=== PATIENT | female | born 1950 | race Two or more races ===

== ENCOUNTER 2025-03-31 05:11 | Inpatient (IN) | payer OTHER ==
[~2025-03-31] VITALS: Ht 160 cm; Wt 64.6 kg
--- NOTE | 2025-03-31 05:34 | ED.PDOC ---
HPI Comments 74 year old female with a Hx of HTN, Hyperlipidemia, Arteritis, and Sciatica was BIBA for the c/c of a [facility] Transfer for an NSTEMI, Fever, Confusion, and RLQ ABD pain. Per EMS pt was Transferred from [facility], and note the pt had an ABD/Pelvic CT done at [facility] and was noted to be positive for appendicitis. Pt was also noted to have a Troponin of 400. Pt is noted to be a poor Historian at this time. No other associated symptoms, modifiers, recent injuries or sick contacts present at this time. Time Seen by MD: 05:27 Reviewed Notes: Nurses Notes, Spa Host Notes, Medications, Allergies Allergies: Coded Allergies: NO KNOWN ALLERGIES (Unverified , 03/31/25) Information Source: Patient, Emergency Med Personnel Mode of Arrival: EMS Severity: Moderate Timing: Hours Duration: Since onset, Hours Prehospital treatment: None Location: Chest (L) Radiation: Abdomen Quality: Sharp, Pressure Onset: At Rest Cardiac Risk Factors: Hyperlipidemia, HTN, None History of: None Modifying Factors: Exertion Associated Signs and Symptoms: Abdominal Pain Past Medical History PAST MEDICAL HISTORY: Arthritis, High Lipids, HTN Surgical History: Denies all surgeries PICKER/PULLER History: No Pertinent PICKER/PULLER History Family History Family History: Unknown Social History Smoker: Non-Smoker Alcohol: Denies ETOH Use Drugs: Denies Drug Use Lives In: Home Constitutional: denies: chills, diaphoresis, fatigue, fever, malaise, sweats, weakness, others EENTM: denies: blurred vision, double vision, ear bleeding, ear discharge, ear drainage, ear pain, ear ringing, eye pain, eye redness, hearing loss, mouth pain, mouth swelling, nasal discharge, nose bleeding, nose congestion, nose pain, photophobia, tearing, throat pain, throat swelling, voice changes, others Respiratory: denies: cough, hemoptysis, orthopnea, SOB at rest, shortness of breath, SOB with excertion, stridor, wheezing, others Cardiovascular: reports: chest pain; denies: dizzy spells, diaphoresis, Dyspnea on exertion, edema, irregular heart beat, left arm pain, lightheadedness, palpitations, PND, syncope, others Gastrointestinal: reports: abdominal pain; denies: abdomen distended, blood streaked bowels, constipated, diarrhea, dysphagia, difficulty swallowing, hematemesis, melena, nausea, poor appetite, poor fluid intake, rectal bleeding, rectal pain, vomiting, others Genitourinary: denies: abnormal vagina bleeding, burning, dyspareunia, dysuria, flank pain, frequency, hematuria, incontinence, pain, , vagina discharge, urgency, others Neurological: denies: dizziness, fainting, headache, left sided numbness, left sided weakness, numbness, paresthesia, pre-existing deficit, right sided numbness, right sided weakness, seizure, speech problems, tingling, tremors, weakness, others Musculoskeletal: denies: back pain, gout, joint pain, joint swelling, muscle pain, muscle stiffness, neck pain, others Integumetry: denies: bruises, change in color, change in hair/nails, dryness, laceration, lesions, lumps, rash, wounds, others Allergic/Immunocompromised: denies: Difficulty Healing, Frequent Infections, Hives, Itching, others Hematologic/Lymphatic: denies: anemia, blood clots, easy bleeding, easy bruising, swollen glands, others Endocrine: denies: excessive hunger, excessive sweating, excessive thirst, excessive urination, flushing, intolerance to cold, intolerance to heat, unexplained weight gain, unexplained weight loss, others Psychiatric: denies: anxiety, bipolar disorder, depression, hopeless, panic disorder, schizophrenia, sleepless, suicidal, others All Other Systems: Reviewed and Negative Physical Exam General Appearance: Moderate Distress, Normal, Other (Chronic ill appearing) HEENT: Normal ENT Inspection, Pharynx Normal, TMs Normal Neck: Full Range of Motion, Non-Tender, Normal, Normal Inspection Respiratory: Chest Non-Tender, Lungs Clear, No Accessory Muscle Use, No Respiratory Distress, Normal Breath Sounds Cardiovascular: No Edema, No JVD, No Murmur, No Gallop, Normal Peripheral Pulses, Regular Rate/Rhythm Breast Exam: Deferred Gastrointestinal: Non Tender, No Pulsatile Mass, Normal Bowel Sounds, Soft Genitalia: Deferred Pelvic: Deferred Rectal: Deferred Extremities: No calf tenderness, Normal capillary refill, Normal inspection, Normal range of motion, Non-tender, No pedal edema Musculoskeletal : Apperance: Normal Neurologic: Disoriented, No Motor Deficits, Normal Affect Cerebellar Function: Normal Reflexes: Normal Skin: Dry, Normal Color, Warm Lymphatic: No Adenopathy Was a procedure done? Was a procedure done?: No CP Differential Dx Differential Diagnosis: Angina, Anxiety / Panic Attack, Electrolyte Disorder, Pulmonary Embolus, PVC's, Sinus Tachycardia Differential Diagnosis: N/A Differential Diagnosis: Angina, Chest Wall Pain, Cholelithiasis, Esophageal reflux/spasm, Gastritis, Pericarditis, Pneumothorax, Pulmonary Embolus X-Ray, Labs, Meds, VS Vital Signs Date Time Temp Pulse Resp B/P (MAP) Pulse Ox O2 Delivery O2 Flow Rate FiO2 03/31/25 05:14 79 03/31/25 05:11 98.5 81 16 92/48 97 98.5 Current Medications Medications (Trade) Dose Ordered Sig/Matthew Route Start Time Stop Time Status Last Admin Sodium Chloride 1,000 ml @ 1,000 mls/hr Q1H ONCE IVB 03/31/25 05:30 03/31/25 06:29 03/31/25 05:52 Time of 1ST Reevaluation: 06:00 Reevaluation 1ST: Unchanged Patient Education/Counseling: Diagnosis, Treatment, Need For Follow Up Family Education/Counseling: No Family Present SEPSIS Sepsis Screen Physician Orders Electrocardigram (03/31/25 05:17) Troponin-I Hs (03/31/25 06:00) Complete Blood Count (03/31/25 05:23) Comprehensive Metabolic Panel (03/31/25 05:23) Lipase (03/31/25 05:23) Urinalysis (03/31/25 05:23) Sodium Chloride 0.9% (03/31/25 05:30) Ct Ab Pel With Iv Con Only (03/31/25 05:23) Heplock Iv (03/31/25 05:23) PTPTT (03/31/25 05:23) Blood Culture (03/31/25 05:23) Lactic Acid W/ Reflex Order (03/31/25 05:23) Troponin-I Hs (03/31/25 06:23) Troponin-I Hs (03/31/25 08:23) Vital Signs Date Time Temp Pulse Resp B/P (MAP) Pulse Ox O2 Delivery O2 Flow Rate FiO2 03/31/25 05:14 79 03/31/25 05:11 98.5 81 16 92/48 97 98.5 Medications Medications Dose Ordered Sig/Matthew Route Start Time Stop Time Status Last Admin Dose Admin Sodium Chloride 1,000 ml @ 1,000 mls/hr Q1H ONCE IVB 03/31/25 05:30 03/31/25 06:29 03/31/25 05:52 Departure 1 Departure Time of Disposition: 07:30 Impression: Primary Impression: Toxic encephalopathy Additional Impressions: Appendicitis Intermediate coronary syndrome Disposition: ADMITTED INPATIENT Admit to: Med Surg Condition: Guarded Discharged With: Self Comments Acute Appendicitis with Possible Microperforation and Elevated Troponin Chief Complaint: Fever, confusion, and right lower quadrant pain History of Present Illness: The patient is a 74-year-old female who was initially evaluated by paramedics today after developing a fever of 103F, confusion, and right lower quadrant abdominal pain. She was initially transported to [facility] where workup revealed findings consistent with appendicitis with possible microperforation on CT imaging. During her evaluation, troponin levels were checked and found to be significantly elevated at approximately 400 (units not specified). Due to lack of cardiac catheterization capabilities at [facility], the patient was transferred to our facility at [facility]. Prior to transfer, the patient received IV fluids, IV Zosyn, Tylenol, and Rocephin. The patient's presentation is most consistent with acute appendicitis with possible microperforation and secondary myocardial ischemia rather than a primary cardiac event requiring catheterization. Review of Systems: Constitutional: Positive for fever (103F). Neurological: Positive for confusion. Gastrointestinal: Positive for right lower quadrant abdominal pain. Cardiovascular: No chest pain, palpitations, or shortness of breath reported. All other systems: Unable to obtain due to patient's condition and limited information in transfer. Medications: Medications administered prior to arrival: - IV Zosyn - IV Rocephin - Tylenol - IV fluids Vital Signs: Temperature: 103F (reported prior to transfer) Other vital signs not documented in transfer information Physical Exam: Limited information available from transfer documentation. Neurological: Patient noted to have some confusion. Abdominal: Right lower quadrant pain noted. Lab Results: From [facility]: - Troponin: Elevated at approximately 400 (units not specified) - Other laboratory studies not documented in transfer information Imaging and Other Relevant Results: From [facility]: - CT Abdomen/Pelvis: Findings consistent with appendicitis with possible microp erforation Medical Decision Making: Summary Statement: 74-year-old female presenting with fever, confusion, and right lower quadrant pain found to have appendicitis with possible microperforation on CT and incidentally elevated troponin levels. Problem List: 1. Acute appendicitis with possible microperforation, 2. Elevated troponin (likely secondary to systemic inflammation), 3. Fever, 4. Acute confusion Differential Diagnosis: For abdominal pain: Acute appendicitis (most likely), diverticulitis, inflammatory bowel disease, mesenteric ischemia, ovarian pathology. For elevated troponin: Secondary myocardial ischemia due to systemic inflammation and fever, primary acute coronary syndrome, myocarditis, pulmonary embolism. ED Course: Patient received from [facility] with diagnosis of appendicitis and elevated troponin. After review of available information, assessment indicates primary issue is appendicitis with possible microperforation causing systemic inflammatory response with secondary cardiac ischemia. Patient does not require cardiac catheterization at this time but does need surgical consultation for appendicitis management. Assessment and Plan: 1. Acute Appendicitis with Possible Microperforation: - Continue IV antibiotics (Zosyn already initiated) - Urgent surgical consultation for definitive management - NPO status - IV fluid resuscitation - Pain management as needed 2. Elevated Troponin (likely secondary to systemic inflammation): - Cardiac monitoring - Serial troponin measurements - ECG - Cardiology consultation if troponin continues to rise or patient develops cardiac symptoms - No immediate indication for cardiac catheterization based on current presentation 3. Fever: - Continue antipyretics (Tylenol) - Monitor temperature 4. Acute Confusion: - Monitor mental status - Reorient as needed - Likely to improve with treatment of underlying infection Disposition: Admit to inpatient service for continued antibiotics, surgical management of appendicitis, and monitoring of cardiac status. Additional Notes: Patient transferred from [facility] for surgical evaluation and management Billing Information: ICD-10: K35.33 - Acute appendicitis with localized peritonitis ICD-10: R50.9 - Fever, unspecified ICD-10: R41.0 - Disorientation, unspecified ICD-10: I24.8 - Other forms of acute ischemic heart disease Critical Care Note Critical Care Time?: Yes (35 min-critical care time only) Critical care comment: Total critical care time: Approximately 36 minutes Due to a high probability of clinically significant, life threatening deterioration, the patient required my highest level of preparedness to intervene emergently and I personally spent this critical care time directly and personally managing the patient. This critical care time included obtaining a history; examining the patient; pulse oximetry; ordering and review of studies; arranging urgent treatment with development of a management plan; evaluation of patient's response to treatment; frequent reassessment; and, discussions with other providers. This critical care time was performed to assess and manage the high probability of imminent, life-threatening deterioration that could result in multi-organ failure. It was exclusive of separately billable procedures and treating other patients. Stability Stability form required: No Heart Score Heart Score: Heart Score Response (Comments) Value History Slightly Suspicious 0 EKG Repolarization Disturb 1 Age >65 2 Risk Factors 1 or 2 risk factors 1 Troponin >3 x's Normal limit 2 Total 6 I personally scribed for IMELDA RAMEY MD ([email or web address]) on 03/31/25 at 05:34. Electronically submitted by Alex Ball ([email or web address]). IMELDA RAMEY MD Mar 31, 2025 05:34
[2025-03-31 05:36] VITALS: PULSE 65; RESP 13; O2SAT 96
[2025-03-31] MEDS: SODIUM CHLORIDE 0.9% 1,000 ML IVB ONE (05:52)
[2025-03-31 06:33] LABS: Hematocrit 32.7 % (36.0-46.0); Hemoglobin 11.4 g/dL (12.2-16.2); Mean Corpuscular Hemoglobin 33.3 pg (28.0-32.0); Mean Corpuscular Volume 95.8 fL (80.0-100.0); Nucleated Red Blood Cells % 0.0 %
[2025-03-31 06:39] LABS: INR 1.16 (0.9-1.15); Partial Thromboplastin Time 29.2 SEC (24.5-34.5); Prothrombin Time 12.1 sec (9.3-11.8)
[2025-03-31 06:48] LABS: Albumin 3.5 g/dL (3.2-4.8); Anion Gap 11 (5-15); BUN/Creatinine Ratio 19.7 (10.0-20.0); Blood Urea Nitrogen 13 mg/dL (9-23); Carbon Dioxide 23 mmol/L (20-31); Lipase 40 U/L (12-53); Sodium 144 mmol/L (136-145)
[2025-03-31 06:49] LABS: Bilirubin, Total 0.5 mg/dL (0.2-1.0)
[2025-03-31 06:50] LABS: Alanine Aminotransferase < 9 U/L (7-40); Alkaline Phosphatase 44 U/L (46-116); Calcium 8.0 mg/dL (8.7-10.4); Chloride 110 mmol/L (98-107); Glucose 109 mg/dL (74-106); Potassium 2.9 mmol/L (3.5-5.1); Total Protein 5.7 g/dL (5.7-8.2)
[2025-03-31] MEDS: IOHEXOL 300 MG/ML 100ML BOTTLE IJ ONE (07:17)
[2025-03-31 08:00] VITALS: PULSE 65; RESP 13; RESP 18; O2SAT 95; O2SAT 96
--- NOTE | 2025-03-31 08:03 | DVH ---
Exam: CT CT AB PEL WO CON-NO ORAL OR IV History: RLQ PAIN Comparison Study: None Technique: Multidetector spiral CT of the abdomen and pelvis was performed from lung bases to pubic s ymphysis. Imaging was performed without intravenous contrast. Coronal and sagittal multiplanar reform ats were obtained from the axial data set by the technologist. Radiation Dose : 1. Abdomen/Pelvis: CTDIvol 13.33 mGy, DLP 596.02 mGy*cm. Findings: Evaluation of vasculature and solid organs is limited due to lack of intravenous contrast use. Lung Bases: Bibasilar airspace disease. Visualized portions of the heart and pericardium are unremark able. Liver: The liver is normal in size. No focal lesions. Diffusely hypoattenuating liver parenchyma con sistent with hepatic steatosis. Gallbladder and Biliary Tree: The gallbladder is unremarkable. No intrahepatic or extrahepatic biliar y ductal dilatation. Spleen: Unremarkable Pancreas: The pancreas is grossly unremarkable. Adrenal Glands: Unremarkable Kidneys: Kidneys are unremarkable without calculi or hydronephrosis. GI tract: The stomach is grossly normal in appearance. No evidence of small bowel wall thickening or abnormal dilatation to suggest bowel obstruction. Sigmoid diverticulosis without acute diverticulitis . Dilated fluid-filled appendix is noted measuring up to 16 mm in diameter with periappendicular fat stranding and Trace fluid, consistent with acute appendicitis. Peritoneum/mesentery/retroperitoneum. No evidence of free intraperitoneal air. Trace fluid surroundin g the inflamed appendix without collection. Lymph nodes: No evidence of suspicious lymphadenopathy. Abdominal Wall: Unremarkable. Vasculature: The visualized abdominal aorta is normal in size and caliber. Evaluation of abdominal a nd pelvic vessels is limited due to lack of intravenous contrast. Urinary Bladder: Grossly unremarkable for degree of distention. Pelvic Organs: Unremarkable Musculoskeletal: No aggressive focal bony lesions, acute fractures or dislocation. 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 IMPRESSION: 1. Acute appendicitis. No perforation or drainable fluid collection. 2. Colonic diverticulosis without acute diverticulitis.
[2025-03-31] MEDS: ACETAMINOPHEN IV 1000 MG/100ML (10MG/ML) IV PRN (08:35)
[2025-03-31 08:42] LABS: Urine Protein, UAD Negative (Negative)
[2025-03-31] MEDS ORDERED: NITROGLYCERIN 0.4 MG SL TAB SL PRN (10:45)
--- NOTE | 2025-03-31 10:51 | DVHHPRES ---
History of Present Illness Resident Creating Document: MIKEL TORRES RESIDENT History of Present Illness Patient is 74-year-old female with past medical history of hypertension, depression, peripheral neuropathy, insomnia brought to the hospital from [facility] for evaluation of altered mental status and severe abdominal pain. Patient was found to being altered around yesterday evening 2100, was seen by son, given patient was altered , patient was brought to the [facility]. During [facility] patient found to have hypokalemia, head CT scan ruled out acute intracranial abnormality, chest x-ray was unremarkable, CT scan abdomen found to have acute appendicitis, possible micro perforation can not be ruled out. Then patient was transferred to [facility] for further evaluation. At the time of evaluation, Patient complaining of right lower quadrant abdominal pain, 7/10, associated with chills, feeling nauseous, no recent vomiting, patient complaining of mild watery diarrhea two days ago, no diarrhea today, denied acute chest pain or shortness of breath. Patient is alert oriented time place and person, able to answer all the questions. Complaining of pain requiring pain medicines. Patient denying any other symptoms including chest pain, shortness of breath, motor weakness, sensory deficits, urinary frequency, dysuria, any other symptoms. Past medical history: Hypertension, depression, peripheral neuropathy, insomnia, osteoarthritis Past surgical history: Cholecystectomy, hysterectomy Personal history: None, lives with family, denying any smoking or recreational drug use before. Allergy: None Home medication: Electronic 70 mg p.o. daily, ibuprofen 800 mg tablet p.r.n. , gabapentin 600 mg p.o. frequency not mentioned, amitriptyline 10 mg p.o. daily, omeprazole 20 mg p.o. daily, lisinopril 10 mg p.o. daily, simvastatin 20 mg p.o. daily. Review of Systems Constitutional: No: Fever, Chills, Sweats, Weakness, Malaise, Other Eyes: No: Pain, Vision change, Conjunctivae inflammation, Eyelid inflammation, Other, Redness ENT: No: Ear pain, Ear discharge, Nose pain, Nose discharge, Nose congestion, Mouth pain, Mouth swelling, Throat pain, Throat swelling, Other Respiratory: No: Cough, Dry, Shortness of breath, SOB with excertion, Wheezing, Hemoptysis, Pleuritic Pain, Sputum, Wheezing, Other Cardiovascular: No: Chest Pain, Palpitations, Orthopnea, Paroxysmal Noc. Dyspnea, Edema, Lt Headedness, Other Gastrointestinal: Nausea Genitourinary: No Dysuria, No Frequency, No Incontinence, No Hematuria, No Retention, No Other Musculoskeletal: No: other, neck pain, shoulder pain, arm pain, back pain, hand pain, leg pain, foot pain Skin: No: Rash, Lesions, Jaundice, Bruising, Other Neurological: No: Weakness, Numbness, Incoordination, Change in speech, Confusion, Seizures, Other Allergies: Coded Allergies: NO KNOWN ALLERGIES (Unverified , 03/31/25) Medications Current Medications Medications Dose Ordered Sig/Matthew Route Start Time Stop Time Status Last Admin Dose Admin Nitroglycerin 0.4 mg Q5MINP PRN SL 03/31/25 10:45 UNV Morphine Sulfate 2 mg Q30M PRN IV 03/31/25 10:45 UNV Sodium Chloride 1,000 ml @ 100 mls/hr Q10H IV 03/31/25 10:45 UNV Piperacillin Sod/ Tazobactam Sod 100 ml @ 25 mls/hr Q8HR IV 03/31/25 14:00 UNV Pantoprazole Sodium 40 mg DAILY IV 04/01/25 10:00 UNV Potassium Chloride 100 ml @ 50 mls/hr Q2H IV 03/31/25 10:45 03/31/25 16:44 UNV Morphine Sulfate 1 mg Q3HP PRN IV 03/31/25 11:00 UNV Exam Vital Signs Vital Signs Date Time Temp Pulse Resp B/P (MAP) Pulse Ox O2 Delivery O2 Flow Rate FiO2 03/31/25 09:30 64 15 130/51 (77) 94 03/31/25 08:00 Room Air* 0 21 03/31/25 07:30 97.9 97.9 Exam General Appearance: Cooperative. Well developed. Well nourished. NAD Head Exam: Normal inspection Neck Exam: Normal inspection. Non-tender. Normal alignment Pulmonary/Respiratory: Chest non-tender. Clear bilateral breath sounds Cardiovascular/Chest: Regular rate and rhythm. No murmurs. No JVD. Peripheral Pulses: 2+ Radial (R). 2+ Radial (L). 2+ Pedal (R). 2+ Pedal (L) Abdominal Exam: Normal bowel sounds. Soft. Right lower quadrant tenderness, no rigidity, no guarding No hepatospenomegaly. No masses Ankle Exam: Negative ankle edema Lower extremities: Negative lower extremity edema Neuro/Mental Status: A&O x4. Coherent Thoughts/Psych: Normal thought pattern. Appropriate mood and affect. Good judgement and insight Appearance: In no acute distress Skin Exam: Normal inspection. Normal color. Warm. Dry Labs/Xrays Labs Test 03/31/25 08:26 03/31/25 07:05 03/31/25 05:50 Range/Units Urine Color Light-yellow Yellow Urine Clarity Clear Clear Urine pH 6.5 5.0-9.0 Urine Specific [place] 1.013 1.001-1.035 Urine Protein Negative Negative Urine Ketones Negative Negative Urine Blood 1+ H Negative /uL Urine Nitrite Negative Negative Urine Bilirubin Negative Negative Urine Urobilinogen Normal Negative mg/dL Urine Leukocyte Esterase Negative Negative /uL Urine RBC 6 0 - 4 /hpf Urine Microscopic WBC 1 0-5 /HPF Urine Squamous Epithelial Cells Few <5 /hpf Urine Bacteria None seen None Seen /hpf Urine Glucose Normal Normal mg/dL Troponin I High Sensitivity 421 *H </=34 ng/L White Blood Count 11.8 H 4.4-10.8 10^3/uL Red Blood Count 3.42 L 4.0-5.20 10^6/uL Hemoglobin 11.4 L 12.2-16.2 g/dL Hematocrit 32.7 L 36.0-46.0 % Mean Corpuscular Volume 95.8 80.0-100.0 fL Mean Corpuscular Hemoglobin 33.3 H 28.0-32.0 pg Mean Corpuscular Hemoglobin Concent 34.8 32.0-36.0 g/dL Red Cell Distribution Width 13.6 11.8-14.3 % Platelet Count 209 140-450 10^3/uL Mean Platelet Volume 7.8 6.9-10.8 fL Neutrophils (%) (Auto) 89.4 H 37.0-80.0 % Lymphocytes (%) (Auto) 5.5 L 10.0-50.0 % Monocytes (%) (Auto) 5.0 0.0-12.0 % Eosinophils (%) (Auto) 0.0 0.0-7.0 % Basophils (%) (Auto) 0.1 0.0-2.0 % Neutrophils # (Auto) 10.6 H 1.6-8.6 10 ^3/uL Lymphocytes # (Auto) 0.6 0.4-5.4 10 ^3/uL Monocytes # (Auto) 0.6 0-1.3 10 ^3/uL Eosinophils # (Auto) 0 0-0.8 10 ^3/uL Basophils # (Auto) 0 0-0.2 10 ^3/uL Nucleated Red Blood Cells 0.0 % Prothrombin Time 12.1 H 9.3-11.8 sec Prothrombin Time INR 1.16 H 0.9-1.15 Activated Partial Thromboplast Time 29.2 24.5-34.5 SEC Sodium Level 144 136-145 mmol/L Potassium Level 2.9 L 3.5-5.1 mmol/L Chloride Level 110 H 98-107 mmol/L Carbon Dioxide Level 23 20-31 mmol/L Anion Gap 11 5-15 Blood Urea Nitrogen 13 9-23 mg/dL Creatinine 0.66 0.550-1.02 mg/dL Glomerular Filtration Rate Calc 93 >90 mL/min BUN/Creatinine Ratio 19.7 10.0-20.0 Serum Glucose 109 H 74-106 mg/dL Lactic Acid Level 1.0 0.4-2.0 mmol/L Calcium Level 8.0 L 8.7-10.4 mg/dL Total Bilirubin 0.5 0.2-1.0 mg/dL Aspartate Amino Transferase (AST) 18 13-40 U/L Alanine Aminotransferase (ALT) < 9 7-40 U/L Alkaline Phosphatase 44 L 46-116 U/L Total Protein 5.7 5.7-8.2 g/dL Albumin 3.5 3.2-4.8 g/dL Lipase 40 12-53 U/L SEPSIS Sepsis Screen Date sepsis recognized/suspect: Mar 31, 2025 Time Sepsis recognized/suspect: 08 Recent Procedure: No On Antibiotic Therapy: No Respiratory Rate >20: No Heart Rate >90: No Temp<36 C (96.8 F) or >38.3 C: No SBP <90 or MAP <65 mmHG: No New Acute Mental Status Change: No Is the patient on CPAP, BIPAP,: No Physician Orders Electrocardigram (03/31/25 05:17) Heplock Iv (03/31/25 05:23) Blood Culture (03/31/25 05:23) Troponin-I Hs (03/31/25 08:23) Ct Ab Pel Wo Con-No Oral Or Iv (03/31/25 07:18) Admit (03/31/25 10:40) Nitroglycerin Sublingual (Ntrostat Subli (03/31/25 10:45) Morphine Sulfate Injection (03/31/25 10:45) Oxygen By Nasal Cannula (03/31/25 10:40) Notify Of Changes From Base (03/31/25 10:40) Information Systems Security Specialist For 24 Hours (03/31/25 10:40) Emergency Dysrhythmia Protocol (03/31/25 10:40) Rhythm Strips Once Every Shift (03/31/25 10:40) * Surgical Consult (03/31/25 ) Sodium Chloride 0.9% (03/31/25 10:45) Piperacillin-Tazob 3.375gm (Zosyn 3.375g (03/31/25 10:45) Piperacillin-Tazob 3.375gm (Zosyn 3.375g (03/31/25 14:00) Pantoprazole (Protonix) (03/31/25 10:45) Pantoprazole (Protonix) (04/01/25 10:00) Potassium Chl 20meq/100ml (03/31/25 10:45) Magnesium (03/31/25 10:41) Chest Xray 1 View (03/31/25 10:41) B-Type Natriuretic Peptide (03/31/25 10:41) Echo 2d Mode Cardiac Dop (03/31/25 10:41) * Cardiology Consult (03/31/25 10:47) Npo Except For Medications (03/31/25 10:48) Npo (Nothing By Mouth) Diet (03/31/25 Lunch) Blood Culture (03/31/25 10:48) Thyroid Stimulating Hormone (03/31/25 10:48) Morphine Sulfate Injection (03/31/25 11:00) Morphine Sulfate Injection (03/31/25 11:00) Vital Signs Date Time Temp Pulse Resp B/P (MAP) Pulse Ox O2 Delivery O2 Flow Rate FiO2 03/31/25 09:30 64 15 130/51 (77) 94 03/31/25 08:00 65 18 95 Room Air* 0 21 03/31/25 07:30 97.9 65 18 126/75 (92) 99 97.9 03/31/25 05:48 67 03/31/25 05:36 98.6 65 13 100/38 (58) 96 98.6 03/31/25 05:36 65 13 96 Nasal Cannula* 2 28 03/31/25 05:14 79 03/31/25 05:11 98.5 81 16 92/48 97 98.5 Laboratory Tests Test 03/31/25 05:50 Lactic Acid Level 1.0 mmol/L (0.4-2.0) White Blood Count 11.8 10^3/uL (4.4-10.8) H Medications Medications Dose Ordered Sig/Matthew Route Start Time Stop Time Status Last Admin Dose Admin Aspirin 325 mg ONCE ONCE PO 03/31/25 07:15 03/31/25 07:16 DC 03/31/25 07:07 325 MG Sodium Chloride 1,000 ml @ 1,000 mls/hr Q1H ONCE IVB 03/31/25 05:30 03/31/25 06:29 DC 03/31/25 05:52 1,000 MLS/HR Reassessment Post Fluid SEPSIS FOCUS EXAM(REASSESSMENT Reassessment done on 10:00 a.m. again We will give IV fluid 125 mL/hour, Vitals stable, no tachycardia, no tachypnea, blood pressure map greater than 65 Assessment/Plan Assessment/Plan Acute sepsis likely due to acute appendicitis Acute appendicitis, micro perforation can not be ruled out NSTEMI type 2 likely due to above Hypokalemia Normocytic normochromic anemia History of hypertension History of depression Hip osteoarthritis Insomnia Obesity BMI 31.6 kg/m2 Plan/recommendation -reviewed medical records from [facility], patient was found to have hypokalemia, CT scan of abdomen showed acute appendicitis, chest x-ray showed mild pulmonary prominent vasculature, patient was on room air, CT scan of the head: Unremarkable for acute intracranial abnormality, transferred to [facility] for further evaluation -IV antibiotic with Zosyn 3.375 mg IV Q eight -IV fluid normal saline 100 mL/hour -surgical consultation for acute appendicitis -pending blood culture, lactic acid :1, chest x-ray, echocardiogram, BNP, TSH -cardiology: Non trending troponin elevation likely demand ischemia, cardiology consultation was done for preop clearance. Continue aspirin 81 mg p.o. daily. -NPO except meds, waiting surgical evaluation -pain management with morphine 1 mg IV q.3 -IV Protonix 40 mg daily for PUD prophylaxis -DVT prophylaxis on hold given possible surgery, SCD Admit to telemetry Goals of care discussed greater than 24 minutes, full code status. Plan discussed with Dr. donald Plan discussed with: Patient, Other (RN) My Orders Orders - MIKEL TORRES RESIDENT Procedure Category Date Status Time Admit ADMIT 03/31/25 Transmitted 10:40 Nitroglycerin PHA 03/31/25 Logged Sublingual (Ntrostat 10:45 Morphine Sulfate PHA 03/31/25 Logged Injection 10:45 Oxygen By Nasal RT 03/31/25 Transmitted Cannula 10:40 Notify Of Changes [facility] 03/31/25 In Process From Base 10:40 Information Systems Security Specialist For [facility] 03/31/25 In Process 24 Hours 10:40 Emergency Dysrhythmia NITHYA 03/31/25 In Process Protocol 10:40 Rhythm Strips Once [facility] 03/31/25 In Process Every Shift 10:40 * Surgical Consult CONS 03/31/25 Transmitted Sodium Chloride 0.9% PHA 03/31/25 Logged 10:45 Piperacillin-Tazob PHA 03/31/25 Logged 3.375gm (Zosyn 3.375g 10:45 Piperacillin-Tazob PHA 03/31/25 Logged 3.375gm (Zosyn 3.375g 14:00 Pantoprazole PHA 03/31/25 Logged (Protonix) 10:45 Pantoprazole PHA 04/01/25 Logged (Protonix) 10:00 Potassium Chl PHA 03/31/25 Logged 20meq/100ml 10:45 Magnesium LAB 03/31/25 Logged 10:41 Chest Xray 1 View XY 03/31/25 Logged 10:41 B-Type Natriuretic LAB 03/31/25 Logged Peptide 10:41 Echo 2d Mode Cardiac US 03/31/25 Logged DOP 10:41 * Cardiology Consult CONS 03/31/25 Transmitted 10:47 Npo Except For NITHYA 03/31/25 In Process Medications 10:48 Npo (Nothing By DIET 03/31/25 Transmitted Mouth) Diet Lunch Blood Culture VICKIE 03/31/25 Transmitted 10:48 Thyroid Stimulating LAB 03/31/25 Logged Hormone 10:48 Morphine Sulfate PHA 03/31/25 Logged Injection 11:00 Morphine Sulfate PHA 03/31/25 Logged Injection 11:00 Date of Service: Mar 31, 2025 Billing Provider: WINSOME DONALD MD Common Visit Codes: [id number] INP/OBS CARE (HIGH) Secondary Visit Codes: [id number] CARE PLAN 30 MINUTES MIKEL TORRES RESIDENT Mar 31, 2025 10:51 WINSOME DONALD MD Apr 01, 2025 21:31
--- NOTE | 2025-03-31 11:15 | DVH ---
EXAM: XY CHEST XRAY 1 VIEW Indication: pain Technique: Single frontal view of the chest was obtained Comparison: None FINDINGS: Lines and Tubes: None Lungs: No focal consolidation. Pleura: No effusion. No pneumothorax. Cardiomediastinal contours: Unremarkable Bones: No acute osseous abnormality. IMPRESSION: No acute cardiopulmonary disease.
[2025-03-31] MEDS: PANTOPRAZOLE 40 MG/10 ML VIAL INJ IV ONE (11:31)
[2025-03-31] MEDS: ONDANSETRON HCL 4 MG/2 ML VIAL IV PRN (11:31)
[2025-03-31] MEDS: PIPERACILLIN-TAZOB 3.375GM 100 ML IV ONE (11:31)
[2025-03-31] MEDS: MORPHINE SULFATE INJ 2 MG/ml SYRG IV ONE (11:35)
[2025-03-31] MEDS: SODIUM CHLORIDE 0.9% 1,000 ML IV SCH (11:36)
[2025-03-31] MEDS: POTASSIUM CHL 20MEQ/100ML 100 ML IV SCH (11:36)
--- NOTE | 2025-03-31 16:06 | DVHINCON2 ---
Date of service: Mar 31, 2025 Allergies: Coded Allergies: NO KNOWN ALLERGIES (Unverified , 03/31/25) Current Medications Current Medications Medications (Trade) Dose Ordered Sig/Matthew Route PRN Reason Start Time Stop Time Status Last Admin Nitroglycerin (Ntrostat Sublingual) 0.4 mg Q5MINP PRN SL FOR CHEST PAIN 03/31/25 10:45 Morphine Sulfate 2 mg Q30M PRN IV FOR CHEST PAIN 03/31/25 10:45 Sodium Chloride 1,000 ml @ 100 mls/hr Q10H IV 03/31/25 10:45 03/31/25 11:36 Piperacillin Sod/ Tazobactam Sod 100 ml @ 25 mls/hr Q8H IV 03/31/25 20:00 Pantoprazole Sodium (Protonix) 40 mg DAILY IV 04/01/25 10:00 Potassium Chloride 100 ml @ 50 mls/hr Q2H IV 03/31/25 10:45 03/31/25 16:44 03/31/25 13:45 Morphine Sulfate 1 mg Q3HP PRN IV SEVERE PAIN (7-10 PAIN SCALE) 03/31/25 11:00 Ondansetron HCl (Zofran) 4 mg Q6HPRN PRN IV NAUSEA / VOMITING 03/31/25 11:00 03/31/25 11:31 Vital Signs Vital Signs Date Time Temp Pulse Resp B/P (MAP) Pulse Ox O2 Delivery O2 Flow Rate FiO2 03/31/25 15:00 92 14 153/44 (80) 94 03/31/25 08:00 Room Air* 0 21 03/31/25 07:30 97.9 97.9 Labs/Diagnostic Data Labs Test 03/31/25 13:10 03/31/25 08:26 03/31/25 07:05 03/31/25 05:50 Range/Units Troponin I High Sensitivity 414 *H </=34 ng/L Urine Color Light-yellow Yellow Urine Clarity Clear Clear Urine pH 6.5 5.0-9.0 Urine Specific [place] 1.013 1.001-1.035 Urine Protein Negative Negative Urine Ketones Negative Negative Urine Blood 1+ H Negative /uL Urine Nitrite Negative Negative Urine Bilirubin Negative Negative Urine Urobilinogen Normal Negative mg/dL Urine Leukocyte Esterase Negative Negative /uL Urine RBC 6 0 - 4 /hpf Urine Microscopic WBC 1 0-5 /HPF Urine Squamous Epithelial Cells Few <5 /hpf Urine Bacteria None seen None Seen /hpf Urine Glucose Normal Normal mg/dL Magnesium Level 1.6 1.6-2.6 mg/dL Thyroid Stimulating Hormone (TSH) 0.31 L 0.55-4.78 uIU/mL White Blood Count 11.8 H 4.4-10.8 10^3/uL Red Blood Count 3.42 L 4.0-5.20 10^6/uL Hemoglobin 11.4 L 12.2-16.2 g/dL Hematocrit 32.7 L 36.0-46.0 % Mean Corpuscular Volume 95.8 80.0-100.0 fL Mean Corpuscular Hemoglobin 33.3 H 28.0-32.0 pg Mean Corpuscular Hemoglobin Concent 34.8 32.0-36.0 g/dL Red Cell Distribution Width 13.6 11.8-14.3 % Platelet Count 209 140-450 10^3/uL Mean Platelet Volume 7.8 6.9-10.8 fL Neutrophils (%) (Auto) 89.4 H 37.0-80.0 % Lymphocytes (%) (Auto) 5.5 L 10.0-50.0 % Monocytes (%) (Auto) 5.0 0.0-12.0 % Eosinophils (%) (Auto) 0.0 0.0-7.0 % Basophils (%) (Auto) 0.1 0.0-2.0 % Neutrophils # (Auto) 10.6 H 1.6-8.6 10 ^3/uL Lymphocytes # (Auto) 0.6 0.4-5.4 10 ^3/uL Monocytes # (Auto) 0.6 0-1.3 10 ^3/uL Eosinophils # (Auto) 0 0-0.8 10 ^3/uL Basophils # (Auto) 0 0-0.2 10 ^3/uL Nucleated Red Blood Cells 0.0 % Prothrombin Time 12.1 H 9.3-11.8 sec Prothrombin Time INR 1.16 H 0.9-1.15 Activated Partial Thromboplast Time 29.2 24.5-34.5 SEC Sodium Level 144 136-145 mmol/L Potassium Level 2.9 L 3.5-5.1 mmol/L Chloride Level 110 H 98-107 mmol/L Carbon Dioxide Level 23 20-31 mmol/L Anion Gap 11 5-15 Blood Urea Nitrogen 13 9-23 mg/dL Creatinine 0.66 0.550-1.02 mg/dL Glomerular Filtration Rate Calc 93 >90 mL/min BUN/Creatinine Ratio 19.7 10.0-20.0 Serum Glucose 109 H 74-106 mg/dL Lactic Acid Level 1.0 0.4-2.0 mmol/L Calcium Level 8.0 L 8.7-10.4 mg/dL Total Bilirubin 0.5 0.2-1.0 mg/dL Aspartate Amino Transferase (AST) 18 13-40 U/L Alanine Aminotransferase (ALT) < 9 7-40 U/L Alkaline Phosphatase 44 L 46-116 U/L B-Type Natriuretic Peptide 105.27 0-100 pg/mL Total Protein 5.7 5.7-8.2 g/dL Albumin 3.5 3.2-4.8 g/dL Lipase 40 12-53 U/L Assessment [id number] AC APPENDICITIS LAP/OPEN APPENDECTOMY Plan discussed with: Other CONG COTTER MD Mar 31, 2025 16:06
--- NOTE | 2025-03-31 16:28 | DVHSR ---
APPROVED REPORT EXAM: Two-dimensional and M-mode echocardiogram with Doppler and color Doppler. Blood Pressure: 130/51 mmHg INDICATION prominent pulmonary vasculature RISK FACTORS Height: 5'3, Weight: 178 DIMENSIONS LVDd3.8 (3.8-5.7cm)LA (2D)3.7 (1.9-4.0cm)Aortic Root3.0 (2.0-3.7cm) LVDs2.4 (2.5-4.0cm)LA (MM) (1.9-4.0cm)Aortic Cusp Exc2.0 (1.5-2.0cm) EF (%) 65.0 (55-70%)Rt. Atrium4.3 (1.9-4.0cm)Asc. Aorta cm IVSd1.2 (0.7-1.1cm)RV (D) (1.8-2.4cm) PWd0.9 (0.7-1.1cm) Mitral Valve MitralMitral Stenosis E wave0.62m/sMV Mean GR.mmHg A wave0.79m/sMV Peak GR.63mmHg E/A ratio0.82D MVAcm2 DECEL [id number] 1/2 [place] Aortic Valve Aortic ValveAortic Stenosis V11.06m/Tao Mean GR.5mmHg V21.52m/Tao Peak GR.9mmHg LVOT Diameter2.1 (1.8-2.4cm)Doppler AVA2.41cm2 Pulmonic Valve V21.02m/s Tricuspid Valve TR Velocity3.23m/s [id number] Other Information Technically limited study due to patient moving. Conclusion Technically good study. Sinus rhythm. Concentric LVH. Aortic root enlargement. Valves are normal. EF of 60% with normal RV function. Dopplers unremarkable. No pericardial effusion masses or vegetations.
--- NOTE | 2025-03-31 17:16 | DVHINCON2 ---
Date Seen: Mar 31, 2025 Referring Physician MD Adrienne resident Reason for Consultation Elevated troponin, cardiac risk stratification History of Present Illness This is a Portuguese-speaking 74-year-old female patient who presents to emergency room with chief complaint of altered level of mentation and pyrexia. The patient was initially taken to [facility] for altered level of mentation. She was then transferred to this facility for further evaluation. At the time of assessment, the patient is now alert and oriented and able to answer all questions appropriately. The patient reports that she has been experiencing right lower quadrant pain for approximately eight days at home. She also mentions that she has been experiencing fevers for the last three days. She reports her family became concerned when she seemed confused to them. Imaging has confirmed acute appendicitis. Cardiology has been consulted at this time for cardiac risk stratification. Initial twelve lead electrocardiogram reveals normal sinus rhythm without any significant ST segment changes. Initial troponin level of 444ng/L with slight down trend thereafter. Significant past medical history includes hypertension, dyslipidemia, type 2 diabetes mellitus, and obesity. Past Medical History Past medical history reviewed. No other significant than mentioned above. Past Surgical History Hysterectomy Family History Family history reviewed. Social History Denies the use of tobacco, alcohol or illicit drugs. Allergies: Coded Allergies: NO KNOWN ALLERGIES (Unverified , 03/31/25) Home Meds Home medications reviewed. Current Medications Current Medications Medications (Trade) Dose Ordered Sig/Matthew Route PRN Reason Start Time Stop Time Status Last Admin Nitroglycerin (Ntrostat Sublingual) 0.4 mg Q5MINP PRN SL FOR CHEST PAIN 03/31/25 10:45 Morphine Sulfate 2 mg Q30M PRN IV FOR CHEST PAIN 03/31/25 10:45 Sodium Chloride 1,000 ml @ 100 mls/hr Q10H IV 03/31/25 10:45 03/31/25 11:36 Piperacillin Sod/ Tazobactam Sod 100 ml @ 25 mls/hr Q8H IV 03/31/25 20:00 Pantoprazole Sodium (Protonix) 40 mg DAILY IV 04/01/25 10:00 Potassium Chloride 100 ml @ 50 mls/hr Q2H IV 03/31/25 10:45 03/31/25 16:44 DC 03/31/25 16:05 Morphine Sulfate 1 mg Q3HP PRN IV SEVERE PAIN (7-10 PAIN SCALE) 03/31/25 11:00 Ondansetron HCl (Zofran) 4 mg Q6HPRN PRN IV NAUSEA / VOMITING 03/31/25 11:00 03/31/25 11:31 Review of Systems Constitutional: Generalized weakness Ears, Nose, & Throat: No symptom reported Eyes: No symptom reported Neurological: Altered level of mentation Pulmonary/Respiratory: No symptoms reported Cardiovascular: No symptom reported Gastrointestinal: Abdominal pain Genitourinary: No symptom reported Musculoskeletal: No symptom reported Skin: No symptom reported Psychiatric: No symptom reported Endocrine: No symptom reported Hematologic/Lymphatic: No symptom reported Vital Signs Vital Signs Date Time Temp Pulse Resp B/P (MAP) Pulse Ox O2 Delivery O2 Flow Rate FiO2 03/31/25 15:00 92 14 153/44 (80) 94 03/31/25 08:00 Room Air* 0 21 03/31/25 07:30 97.9 97.9 Physical Exam General Appearance: Cooperative. Morbidly obese Pulmonary/Respiratory: Clear, bilateral breaths sounds. Cardiovascular/Chest: Regular rate and rhythm. Peripheral Pulses: 2+ Radial (R). 2+ Radial (L). 2+ Pedal (R). 2+ Pedal (L) Abdominal Exam: Normal bowel sounds. Ankle Exam: Negative ankle edema Lower extremities: Negative lower extremity edema Neuro/Mental Status: A/OX4, coherent. Thoughts/Psych: Normal thought pattern. Appropriate mood and affect. Good judgment and insight. Appearance: No acute distress. Skin Exam: Normal inspection. Normal color. Warm and dry. Labs/Diagnostic Data Labs Test 03/31/25 13:10 03/31/25 08:26 03/31/25 07:05 03/31/25 05:50 Range/Units Troponin I High Sensitivity 414 *H </=34 ng/L Urine Color Light-yellow Yellow Urine Clarity Clear Clear Urine pH 6.5 5.0-9.0 Urine Specific [place] 1.013 1.001-1.035 Urine Protein Negative Negative Urine Ketones Negative Negative Urine Blood 1+ H Negative /uL Urine Nitrite Negative Negative Urine Bilirubin Negative Negative Urine Urobilinogen Normal Negative mg/dL Urine Leukocyte Esterase Negative Negative /uL Urine RBC 6 0 - 4 /hpf Urine Microscopic WBC 1 0-5 /HPF Urine Squamous Epithelial Cells Few <5 /hpf Urine Bacteria None seen None Seen /hpf Urine Glucose Normal Normal mg/dL Magnesium Level 1.6 1.6-2.6 mg/dL Thyroid Stimulating Hormone (TSH) 0.31 L 0.55-4.78 uIU/mL White Blood Count 11.8 H 4.4-10.8 10^3/uL Red Blood Count 3.42 L 4.0-5.20 10^6/uL Hemoglobin 11.4 L 12.2-16.2 g/dL Hematocrit 32.7 L 36.0-46.0 % Mean Corpuscular Volume 95.8 80.0-100.0 fL Mean Corpuscular Hemoglobin 33.3 H 28.0-32.0 pg Mean Corpuscular Hemoglobin Concent 34.8 32.0-36.0 g/dL Red Cell Distribution Width 13.6 11.8-14.3 % Platelet Count 209 140-450 10^3/uL Mean Platelet Volume 7.8 6.9-10.8 fL Neutrophils (%) (Auto) 89.4 H 37.0-80.0 % Lymphocytes (%) (Auto) 5.5 L 10.0-50.0 % Monocytes (%) (Auto) 5.0 0.0-12.0 % Eosinophils (%) (Auto) 0.0 0.0-7.0 % Basophils (%) (Auto) 0.1 0.0-2.0 % Neutrophils # (Auto) 10.6 H 1.6-8.6 10 ^3/uL Lymphocytes # (Auto) 0.6 0.4-5.4 10 ^3/uL Monocytes # (Auto) 0.6 0-1.3 10 ^3/uL Eosinophils # (Auto) 0 0-0.8 10 ^3/uL Basophils # (Auto) 0 0-0.2 10 ^3/uL Nucleated Red Blood Cells 0.0 % Prothrombin Time 12.1 H 9.3-11.8 sec Prothrombin Time INR 1.16 H 0.9-1.15 Activated Partial Thromboplast Time 29.2 24.5-34.5 SEC Sodium Level 144 136-145 mmol/L Potassium Level 2.9 L 3.5-5.1 mmol/L Chloride Level 110 H 98-107 mmol/L Carbon Dioxide Level 23 20-31 mmol/L Anion Gap 11 5-15 Blood Urea Nitrogen 13 9-23 mg/dL Creatinine 0.66 0.550-1.02 mg/dL Glomerular Filtration Rate Calc 93 >90 mL/min BUN/Creatinine Ratio 19.7 10.0-20.0 Serum Glucose 109 H 74-106 mg/dL Lactic Acid Level 1.0 0.4-2.0 mmol/L Calcium Level 8.0 L 8.7-10.4 mg/dL Total Bilirubin 0.5 0.2-1.0 mg/dL Aspartate Amino Transferase (AST) 18 13-40 U/L Alanine Aminotransferase (ALT) < 9 7-40 U/L Alkaline Phosphatase 44 L 46-116 U/L B-Type Natriuretic Peptide 105.27 0-100 pg/mL Total Protein 5.7 5.7-8.2 g/dL Albumin 3.5 3.2-4.8 g/dL Lipase 40 12-53 U/L Assessment Preprocedural cardiovascular examination Acute appendicitis Sepsis NSTEMI,likely type II secondary to above Hypertension Hypokalemia Obesity Plan/Recommendation We will continue with the following plan/recommendations (Dr. Schaeffer): A transthoracic echocardiogram reveals an EF of 60%. Revised cardiac risk index (Alex criteria): 1 point (1.1% risk of major cardiac event). A chest x-ray done on this admission reveals no acute cardiopulmonary disease. The patient has no underlying history of congestive heart failure, coronary artery disease, or equivalent of cardiac symptoms. Prior to emergency room arrival, the patient reported a good functional capacity. Elevated troponin level likely demand m ismatch ischemia in the setting of acute appendicitis and electrolyte derangement. No ST segment changes noted on 12 lead electrocardiogram and patient denies all cardiac symptoms. Per Cardiology standpoint, the patient is at an acceptable risk for moderate risk surgery. There is no additional cardiac workup indicated prior to surgery. Thank you for allowing us to care for this patient. Please call with any questions or concerns. Critical care time spent: 44 minute This medical document was created using an electronic medical record system with voice recognition software and computerized dictation system. Although this document has been carefully reviewed, there might still be some phonetic and typographical errors. Occasional wrong-word or ``sound-alike substitutions may have occurred due to the inherent limitations of voice recognition software. These areas are purely typographical due to imperfections of the software programs and do not reflect any compromise in the patient's medical care. Please read the chart carefully and recognize, using context, where these substitutions have occurred. Plan discussed with: Patient NYHA Physical activity limitations: NA Date of Service: Mar 31, 2025 Billing Provider: FADY MIR Cardiology Common Codes: [id number] INP/OBS CARE (High) Cardiology Consultation Codes: [id number] CONSULT <45MIN FADY MIR Mar 31, 2025 17:16
[2025-03-31] MEDS: MORPHINE SULFATE INJ 2 MG/ml SYRG IV PRN ×2 (17:54)
[2025-03-31] MEDS ORDERED: fentaNYL CITRATE 100 MCG/2 ML VL ONE (18:12)
[2025-03-31] MEDS ORDERED: HYDROmorphone HCL 2 MG/ML VL/or syr ONE (18:13)
[2025-03-31] MEDS ORDERED: PROPOFOL 10 MG/ML 20 ML IV ONE (18:13)
[2025-03-31] MEDS ORDERED: PHENYLEPHRINE HCL 10 MG/ML VL ONE (18:15)
[2025-03-31] MEDS ORDERED: ROCURONIUM 10MG/ML 10ML VIAL IV ONE (19:01)
[2025-03-31] MEDS ORDERED: SUGAMMADEX 200mg/2ml Vial (100MG/ML) IV ONE (20:16)
[2025-03-31] MEDS: BUPIVACAINE 0.25% INJ 50ML VIAL ONE (20:20)
[2025-03-31 20:27] VITALS: O2SAT 97
[2025-03-31] MEDS ORDERED: MEPERIDINE HCL (25 MG/ML) 1ML VIAL IV PRN (20:30)
[2025-03-31] MEDS ORDERED: HYDROmorphone HCL 2 MG/ML VL/or syr IV PRN (20:30)
--- NOTE | 2025-03-31 20:33 | DVHINCON2 ---
DATE OF CONSULTATION: 03/31/2025 HISTORY OF PRESENT ILLNESS: The patient is 74 years old, complaining of right lower quadrant pain for about 5-6 days, but it got worse yesterday, came to the emergency room. I was asked to see her. Some nausea and no vomiting. No constipation or diarrhea. No hematemesis or melena. No bleeding per rectum. PAST MEDICAL HISTORY: Diabetes and hypertension. PAST SURGICAL HISTORY: Hysterectomy and urinary bladder surgery. She has a Brown catheter in place. PHYSICAL EXAMINATION: VITAL SIGNS: Afebrile. Stable signs. HEENT: No evidence of pallor, cyanosis, or jaundice. NECK: Supple and nontender with no thyromegaly or lymphadenopathy. CHEST AND LUNGS: Clear. HEART: Within normal limits. ABDOMEN: Soft. She is tender in the right lower quadrant. No evidence of rebound. EXTREMITIES: Unremarkable. NEUROLOGIC: Intact. CLINICAL IMPRESSION: Acute appendicitis. PLAN: Laparoscopic possible open appendectomy. Benefits were discussed and consent obtained. MD ORALNDO Drake/SILVA TID: [id number] RECEIPT: [id number] cc: Samy Deleon, PGY-3
--- NOTE | 2025-03-31 20:35 | DVHOP2 ---
Operative Report [id number] AC PERFORATED APPENDICITIS WITH INTRAABD ABSCESS,DENSE ADHESIONS DRAINAGE OF INTRAABD ABSCESS, CANDELARIO LAP APPENDECTOMY EBL 5 CC ONE DRAIN NO COMPLICATIONS STABLE TRANSFER TO RECOVERY ROOM CONG COTTER MD Mar 31, 2025 20:35
[2025-03-31] MEDS ORDERED: GABA-339 PO (20:49)
--- NOTE | 2025-03-31 21:00 | DVHOP ---
DATE OF SURGERY: 03/31/2025 PREOPERATIVE DIAGNOSES: Acute appendicitis with ruptured appendicitis with intraabdominal abscess, dense adhesions. POSTOPERATIVE DIAGNOSES: Acute appendicitis with ruptured appendicitis with intraabdominal abscess, dense adhesions. PROCEDURE: Drainage of intraabdominal abscess with lysis of adhesions and laparoscopic appendectomy. SURGEON: Luan Cody MD [employer] PROFESSOR: None. ANESTHESIA: General. ESTIMATED BLOOD LOSS: Close to 5 mL. DRAINS: One drain was used. COMPLICATIONS: No complications were encountered. DESCRIPTION OF PROCEDURE: The patient was prepped and draped in the usual sterile fashion, in the supine position. A supraumbilical incision was applied. It was taken down to the fascia. The Veress needle was introduced and CO2 insufflation was achieved at a pressure of 15 mmHg. The needle was withdrawn, replaced by a 5 mm trocar and the telescope was introduced and the appendix was found to be acutely inflamed, distended, retrocecal, and ruptured with intraabdominal abscess. Two 5 mm ports were applied more inferiorly, one above the symphysis, the third midway between the upper two. The patient was placed in Trendelenburg and right lateral decubitus position. The camera was moved to the lowermost 5 mm port. The upper 2 ports were used for surgery. The abscess was drained out. The adhesions were taken down. The mesoappendix was clipped at the base and divided using a Harmonic device. The base of the appendix was identified and transected using an EndoGIA stapling device. The appendix was released from the retroperitoneal tissue and the ascending colon location in the paracolic gutter and it was completely removed with clean gross margins without injuring the nerves or vessels and the ureter or the bowel. With this being done, the appendix was then secured in an EndoCatch bag and removed from the supraumbilical wound without any complication. Hemostasis was secured. Irrigation fluid was removed both from the right lower quadrant as well as the pelvis and a size 19 Dayo drainage tube was placed to drain the right lower quadrant and the pelvis and brought out from the lowermost 5 mm port. After this, one port had to be withdrawn and securing it with a nylon suture. The EndoClose suture was used for the fascial closure of the supraumbilical wound. All the ports were withdrawn after all the CO2 was let out and the patient was placed supine. The wounds were then brought together using 3-0 Monocryl suture in a subcuticular fashion. Surgical glue was applied. The patient tolerated the procedure well and was taken back to the recovery room in stable condition. MD ORLANDO Drake/SHADI TID: [id number] RECEIPT: [id number] cc: RAIN GODWIN M.D.
[2025-03-31] MEDS: diphenhdrAMINE HCL 50 MG/1 ML VL ONE (21:20)
[2025-03-31 21:38] VITALS: PULSE 101; RESP 18; O2SAT 93
[2025-03-31 22:00] VITALS: BP 104/58; PULSE 101; RESP 19; TEMP 98.7; O2SAT 93
[2025-03-31] MEDS: PIPERACILLIN-TAZOB 3.375GM 100 ML IV SCH (22:42)
[2025-04-01] VITALS (9 sets, daily range): BP systolic 116–130; BP diastolic 58–79; PULSE 74–87; RESP 15–18; TEMP 97.7–100.4; O2SAT 95–100
[2025-04-01] MEDS: ACETAMINOPHEN 325 MG TAB PO PRN (04:38)
[2025-04-01 07:29] LABS: Hematocrit 31.8 % (36.0-46.0); Hemoglobin 11.0 g/dL (12.2-16.2); Mean Corpuscular Hemoglobin 33.2 pg (28.0-32.0); Mean Corpuscular Volume 96.5 fL (80.0-100.0); Nucleated Red Blood Cells % 0.0 %
[2025-04-01 07:34] LABS: Sodium 139 mmol/L (136-145)
[2025-04-01 07:35] LABS: Anion Gap 10 (5-15); Carbon Dioxide 21 mmol/L (20-31)
[2025-04-01 07:40] LABS: BUN/Creatinine Ratio 16.7 (10.0-20.0); Blood Urea Nitrogen 9 mg/dL (9-23); Glucose 87 mg/dL (74-106)
[2025-04-01 07:41] LABS: Calcium 8.0 mg/dL (8.7-10.4); Chloride 108 mmol/L (98-107); Potassium 3.3 mmol/L (3.5-5.1)
--- NOTE | 2025-04-01 08:16 | DVHPN2 ---
Progress Note Date Seen: Apr 01, 2025 Medical Necessity Reason Pt with a Central, PICC or Fol: No Subjective Review of Systems: CVS:Normal, RESPIRATORY:Normal, :Normal, NEURO:Normal Objective vital signs Vital Sign Date Time Temp Pulse Resp B/P (MAP) Pulse Ox O2 Delivery O2 Flow Rate FiO2 04/01/25 05:00 97.7 79 18 118/58 (78) 99 97.7 03/31/25 21:38 Room Air* 0 21 Total Intake and Output 03/31/25 03/31/25 04/01/25 15:00 23:00 07:00 Intake Total 360 ml Output Total 475 ml Balance -115 ml medications Current Medications Medications Dose Ordered Sig/Matthew Route Start Time Stop Time Status Last Admin Dose Admin Nitroglycerin 0.4 mg Q5MINP PRN SL 03/31/25 10:45 Morphine Sulfate 2 mg Q30M PRN IV 03/31/25 10:45 Sodium Chloride 1,000 ml @ 100 mls/hr Q10H IV 03/31/25 10:45 03/31/25 22:42 100 MLS/HR Piperacillin Sod/ Tazobactam Sod 100 ml @ 25 mls/hr Q8H IV 03/31/25 20:00 04/01/25 04:20 25 MLS/HR Pantoprazole Sodium 40 mg DAILY IV 04/01/25 10:00 Morphine Sulfate 1 mg Q3HP PRN IV 03/31/25 11:00 03/31/25 17:54 1 MG Ondansetron HCl 4 mg Q6HPRN PRN IV 03/31/25 11:00 03/31/25 11:31 4 MG Acetaminophen 650 mg Q4HP PRN PO 03/31/25 18:30 04/01/25 04:38 650 MG Examination: GENERAL:Normal, LUNGS:Normal, CVS:Normal, ABDOMEN:Normal, SKIN:Normal, NEURO:Normal laboratory and microbiology Laboratory Tests 04/01/25 06:21 Test 04/01/25 06:21 Range/Units Serum Glucose 87 74-106 mg/dL Microbiology Date/Time Source Procedure Growth Status 03/31/25 05:50 Blood Blood Culture - Preliminary NO GROWTH AFTER 24 HOURS OF INCUBATION. Resulted Labs and/or images reviewed: Labs reviewed by me, Image(s) reviewed by me Problem List/Assessment/Plan Problem List/Assessment/Plan 1. Acute sepsis likely due to acute appendicitis IV antibiotics, surgical consult 2. Non-STEMI likely type 2 due to above Cardiac consult, trend troponin 3. Hypokalemia Replace 4. Anemia unspecified Monitor 5. Hypertension Continue home medication 6. Obesity Monitor Subjective: Patient is awake and alert Objective: Patient was admitted for acute appendicitis and underwent emergent surgery by Dr. Simi Cody on 03/31/2025. Patient was subsequently found to have non-STEMI type 2, troponins peaked at 1037, patient was seen by boot repairer and ischemic her workup was not indicated. Patient had some confusion after surgery likely due to anesthesia, currently has sitter at bedside however she is alert and oriented x4. Plan: Advance diet as tolerated, pain medication, we will discharge once cleared by general surgeon Plan discussed with: Patient Date of Service: Apr 01, 2025 Billing Provider: NIC LARIOS MD Common Visit Codes: [id number] INP/OBS CARE (MOD) JOHNATHON TAVARES PROMOTIONS SPECIALIST Apr 01, 2025 08:16
[2025-04-01] MEDS: PANTOPRAZOLE 40 MG/10 ML VIAL INJ IV SCH (10:24)
[2025-04-01] MEDS: POTASSIUM EFFERVESENT TAB 25 MEQ PO ONE (12:30)
--- NOTE | 2025-04-01 21:34 | DVHPN2 ---
Progress Note Date Seen: Apr 01, 2025 Medical Necessity Reason Pt with a Central, PICC or Fol: No Objective vital signs Vital Sign Date Time Temp Pulse Resp B/P (MAP) Pulse Ox O2 Delivery O2 Flow Rate FiO2 04/01/25 20:35 98.4 82 17 121/79 (93) 95 98.4 04/01/25 08:00 Nasal Cannula* 2 28 Total Intake and Output 03/31/25 03/31/25 04/01/25 15:00 23:00 07:00 Intake Total 360 ml Output Total 475 ml Balance -115 ml medications Current Medications Medications Dose Ordered Sig/Matthew Route Start Time Stop Time Status Last Admin Dose Admin Nitroglycerin 0.4 mg Q5MINP PRN SL 03/31/25 10:45 Morphine Sulfate 2 mg Q30M PRN IV 03/31/25 10:45 Sodium Chloride 1,000 ml @ 100 mls/hr Q10H IV 03/31/25 10:45 04/01/25 16:45 100 MLS/HR Piperacillin Sod/ Tazobactam Sod 100 ml @ 25 mls/hr Q8H IV 03/31/25 20:00 04/01/25 12:00 25 MLS/HR Pantoprazole Sodium 40 mg DAILY IV 04/01/25 10:00 04/01/25 10:24 40 MG Morphine Sulfate 1 mg Q3HP PRN IV 03/31/25 11:00 04/01/25 18:29 1 MG Ondansetron HCl 4 mg Q6HPRN PRN IV 03/31/25 11:00 03/31/25 11:31 4 MG Acetaminophen 650 mg Q4HP PRN PO 03/31/25 18:30 04/01/25 17:33 650 MG laboratory and microbiology Laboratory Tests 04/01/25 06:21 Test 04/01/25 06:21 Range/Units Serum Glucose 87 74-106 mg/dL Microbiology Date/Time Source Procedure Growth Status 03/31/25 05:50 Blood Blood Culture - Preliminary NO GROWTH AFTER 24 HOURS OF INCUBATION. Resulted Problem List/Assessment/Plan Problem List/Assessment/Plan AFEBRILE VSS ABD SOFT LESS TENDER DRAIN SEROUS 20 CC SP LAP APPENDECTOMY NO COMPLICATION CLOSE OBSERVATION IV AB Plan discussed with: Other My Orders My Orders Orders - CONG COTTER MD Procedure Category Date Status Time Clear Liq Diet DIET 04/01/25 Transmitted Breakfast CONG COTTER MD Apr 01, 2025 21:34
[2025-04-01] MEDS: MELATONIN 5 MG TAB PO ONE (22:26)
[2025-04-02] VITALS (8 sets, daily range): BP systolic 119–149; BP diastolic 69–80; PULSE 67–95; RESP 17–21; TEMP 97.8–98.6; O2SAT 93–97
--- NOTE | 2025-04-02 09:21 | DVHPN2 ---
Progress Note Date Seen: Apr 02, 2025 Medical Necessity Reason Pt with a Central, PICC or Fol: No Objective vital signs Vital Sign Date Time Temp Pulse Resp B/P (MAP) Pulse Ox O2 Delivery O2 Flow Rate FiO2 04/02/25 05:40 84 18 149/72 04/02/25 04:51 98.3 95 98.3 04/01/25 20:00 Nasal Cannula* 2 28 Total Intake and Output 04/01/25 04/01/25 04/02/25 15:00 23:00 07:00 Intake Total 760 ml 1500 ml Output Total 350 ml 980 ml Balance 410 ml 520 ml medications Current Medications Medications Dose Ordered Sig/Matthew Route Start Time Stop Time Status Last Admin Dose Admin Nitroglycerin 0.4 mg Q5MINP PRN SL 03/31/25 10:45 Morphine Sulfate 2 mg Q30M PRN IV 03/31/25 10:45 Sodium Chloride 1,000 ml @ 100 mls/hr Q10H IV 03/31/25 10:45 04/01/25 16:45 100 MLS/HR Piperacillin Sod/ Tazobactam Sod 100 ml @ 25 mls/hr Q8H IV 03/31/25 20:00 04/02/25 05:03 25 MLS/HR Pantoprazole Sodium 40 mg DAILY IV 04/01/25 10:00 04/01/25 10:24 40 MG Morphine Sulfate 1 mg Q3HP PRN IV 03/31/25 11:00 04/02/25 05:10 1 MG Ondansetron HCl 4 mg Q6HPRN PRN IV 03/31/25 11:00 03/31/25 11:31 4 MG Acetaminophen 650 mg Q4HP PRN PO 03/31/25 18:30 04/02/25 06:00 650 MG laboratory and microbiology Laboratory Tests 04/01/25 06:21 Test 04/01/25 06:21 Range/Units Serum Glucose 87 74-106 mg/dL Microbiology Date/Time Source Procedure Growth Status 03/31/25 05:50 Blood Blood Culture - Preliminary NO GROWTH AFTER 48 HOURS OF INCUBATION. Resulted Problem List/Assessment/Plan Problem List/Assessment/Plan AFEBRILE VSS ABD SOFT LESS TENDER DRAIN SEROUS 30 CC SP LAP APPENDECTOMY NO COMPLICATION EILEEN DIET CLOSE OBSERVATION IV AB PT EVAL DC STEARNS Plan discussed with: Patient CONG COTTER MD Apr 02, 2025 09:21
[2025-04-02 10:25] LABS: Hematocrit 31.7 % (36.0-46.0); Hemoglobin 10.8 g/dL (12.2-16.2); Mean Corpuscular Hemoglobin 32.6 pg (28.0-32.0); Mean Corpuscular Volume 95.3 fL (80.0-100.0); Nucleated Red Blood Cells % 0.0 %
[2025-04-02 10:36] LABS: Chloride 106 mmol/L (98-107); Sodium 140 mmol/L (136-145)
[2025-04-02 10:37] LABS: Anion Gap 11 (5-15); Carbon Dioxide 23 mmol/L (20-31)
[2025-04-02 10:40] LABS: Calcium 8.1 mg/dL (8.7-10.4); Potassium 3.0 mmol/L (3.5-5.1)
[2025-04-02 10:42] LABS: BUN/Creatinine Ratio 11.8 (10.0-20.0)
[2025-04-02 10:43] LABS: Blood Urea Nitrogen 6 mg/dL (9-23); Glucose 120 mg/dL (74-106)
--- NOTE | 2025-04-02 15:15 | DVHPN2 ---
Progress Note Date Seen: Apr 02, 2025 Medical Necessity Reason Pt with a Central, PICC or Fol: No Subjective Review of Systems: CVS:Normal, RESPIRATORY:Normal, GI:Normal, NEURO:Normal Objective vital signs Vital Sign Date Time Temp Pulse Resp B/P (MAP) Pulse Ox O2 Delivery O2 Flow Rate FiO2 04/02/25 12:56 98.6 67 21 119/80 (93) 97 98.6 04/02/25 08:00 Nasal Cannula* 2 28 Total Intake and Output 04/01/25 04/01/25 04/02/25 15:00 23:00 07:00 Intake Total 760 ml 1500 ml Output Total 350 ml 980 ml Balance 410 ml 520 ml medications Current Medications Medications Dose Ordered Sig/Matthew Route Start Time Stop Time Status Last Admin Dose Admin Nitroglycerin 0.4 mg Q5MINP PRN SL 03/31/25 10:45 Morphine Sulfate 2 mg Q30M PRN IV 03/31/25 10:45 Piperacillin Sod/ Tazobactam Sod 100 ml @ 25 mls/hr Q8H IV 03/31/25 20:00 04/02/25 12:45 25 MLS/HR Pantoprazole Sodium 40 mg DAILY IV 04/01/25 10:00 04/02/25 09:28 40 MG Morphine Sulfate 1 mg Q3HP PRN IV 03/31/25 11:00 04/02/25 05:10 1 MG Ondansetron HCl 4 mg Q6HPRN PRN IV 03/31/25 11:00 03/31/25 11:31 4 MG Acetaminophen 650 mg Q4HP PRN PO 03/31/25 18:30 04/02/25 06:00 650 MG Lactulose 30 ml Q6HPRN PRN PO 04/02/25 14:15 Examination: GENERAL:Normal, LUNGS:Normal, CVS:Normal, ABDOMEN:Normal, SKIN:Normal, NEURO:Normal laboratory and microbiology Laboratory Tests 04/02/25 10:04 Test 04/02/25 10:04 Range/Units Serum Glucose 120 H 74-106 mg/dL Microbiology Date/Time Source Procedure Growth Status 03/31/25 05:50 Blood Blood Culture - Preliminary NO GROWTH AFTER 48 HOURS OF INCUBATION. Resulted Labs and/or images reviewed: Labs reviewed by me, Image(s) reviewed by me Problem List/Assessment/Plan Problem List/Assessment/Plan 1. Acute sepsis likely due to acute appendicitis IV antibiotics, surgical consult 2. Non-STEMI likely type 2 due to above Cardiac consult, trend troponin 3. Hypokalemia Replace 4. Anemia unspecified Monitor 5. Hypertension Continue home medication 6. Obesity Monitor Subjective: Patient is awake and alert Objective: Patient was admitted for acute appendicitis and underwent emergent surgery by Dr. Simi Cody on 03/31/2025. Patient was subsequently found to have non-STEMI type 2, troponins peaked at 1037, patient was seen by clinical laboratory aides teacher and ischemic her workup was not indicated. Patient had some confusion after surgery likely due to anesthesia, currently has sitter at bedside however she is alert and oriented x4. Patient was able to tolerate soft diet we will advance to cardiac diet. Patient had Brown catheter DC by general surgeon. Patient was able to have bowel movement today. Plan: Advance diet as tolerated, pain medication, if patient is tolerating diet tomorrow and cleared by surgeon we will discharge Plan discussed with: Patient My Orders My Orders Orders - JOHNATHON TAVARES Procedure Category Date Status Time Cardiac DIET 04/02/25 Transmitted Diet-2gna,Lofat,Lochol Dinner Lactulose Oral PHA 04/02/25 In Process 14:15 Potassium Chl PHA 04/02/25 In Process 20meq/100ml 14:15 Complete Blood Count LAB 04/03/25 Verified 05:00 Basic Metabolic Panel LAB 04/03/25 Verified 05:00 Date of Service: Apr 02, 2025 Billing Provider: NIC LARIOS MD Common Visit Codes: [id number] INP/OBS CARE (MOD) JOHNATHON TAVARES Apr 02, 2025 15:14
[2025-04-02] MEDS: SUCCINYLCHOLINE CHLORIDE 20 MG/ML 10ML VIAL IV ONE (17:00)
[2025-04-02] MEDS: METOCLOPRAMIDE HCL 5MG/ml INJ 2ml VIAL IV ONE (17:01)
[2025-04-02] MEDS: ACETAMINOPHEN IV 100 ML IV ONE (17:02)
[2025-04-02] MEDS: diphenhdrAMINE HCL 50 MG/1 ML VL IM ONE (17:02)
[2025-04-02] MEDS: ONDANSETRON HCL 4 MG/2 ML VIAL IV ONE (17:02)
[2025-04-02] MEDS: POTASSIUM CHL 20MEQ/100ML 100 ML IV ONE (17:13)
[2025-04-02] MEDS: POTASSIUM EFFERVESENT TAB 25 MEQ PO ONE (17:13)
[2025-04-03] VITALS (8 sets, daily range): BP systolic 141–168; BP diastolic 74–93; PULSE 74–98; RESP 17–19; TEMP 97.4–98.6; O2SAT 93–96
--- NOTE | 2025-04-03 08:32 | ECG ---
[facility] Test Date: 2025-03-31 Test Time: 05:14:23 Pat Name: ALEX IYER Department: ED Room: 0214T B Gender: F Executive Recruiter: EMELYN : 1950 Requested By: EMERGENCY EMERGENCY Order Number: [id number] Reading MD: Blade Schaeffer Measurements Intervals [employer] Rate: 79 P: 33 UT: 162 QRS: -5 QRSD: 85 T: 8 QT: 385 QTc: 442 Interpretive Statements Sinus rhythm Borderline T wave abnormalities Electronically Signed On 04-03-2025 22:00:58 PDT by Blade Schaeffer Please click the below link to view image of tracing.
[2025-04-03 11:16] LABS: Hepatitis B Surface Antigen Negative (Negative); Hepatitis C Antibody Negative (Negative)
[2025-04-03 11:20] LABS: Hematocrit 34.3 % (36.0-46.0); Hemoglobin 11.8 g/dL (12.2-16.2); Mean Corpuscular Hemoglobin 32.7 pg (28.0-32.0); Mean Corpuscular Volume 95.3 fL (80.0-100.0); Nucleated Red Blood Cells % 0.0 %
[2025-04-03 11:30] LABS: Chloride 104 mmol/L (98-107); Potassium 3.6 mmol/L (3.5-5.1); Sodium 139 mmol/L (136-145)
[2025-04-03 11:31] LABS: Anion Gap 10 (5-15); Carbon Dioxide 25 mmol/L (20-31)
[2025-04-03 11:33] LABS: Calcium 8.6 mg/dL (8.7-10.4)
[2025-04-03 11:36] LABS: BUN/Creatinine Ratio 12.5 (10.0-20.0)
[2025-04-03 11:37] LABS: Blood Urea Nitrogen 6 mg/dL (9-23); Glucose 113 mg/dL (74-106)
--- NOTE | 2025-04-03 15:44 | DVHPN2 ---
Progress Note - Dictate Date Seen: Apr 03, 2025 Medical Necessity Reason Pt with a Central, PICC or Fol: No vital signs Vital Sign Date Time Temp Pulse Resp B/P (MAP) Pulse Ox O2 Delivery O2 Flow Rate FiO2 04/03/25 12:33 98.0 88 18 147/87 (107) 94 98.0 04/03/25 08:00 Room Air* 0 21 Total Intake and Output 04/02/25 04/02/25 04/03/25 15:00 23:00 07:00 Intake Total 690 ml 900 ml Output Total 750 ml 1600 ml Balance -60 ml -700 ml medications Current Medications Medications Dose Ordered Sig/Matthew Route Start Time Stop Time Status Last Admin Dose Admin Nitroglycerin 0.4 mg Q5MINP PRN SL 03/31/25 10:45 Morphine Sulfate 2 mg Q30M PRN IV 03/31/25 10:45 Piperacillin Sod/ Tazobactam Sod 100 ml @ 25 mls/hr Q8H IV 03/31/25 20:00 04/03/25 12:26 25 MLS/HR Pantoprazole Sodium 40 mg DAILY IV 04/01/25 10:00 04/03/25 10:53 40 MG Morphine Sulfate 1 mg Q3HP PRN IV 03/31/25 11:00 04/03/25 08:36 1 MG Ondansetron HCl 4 mg Q6HPRN PRN IV 03/31/25 11:00 03/31/25 11:31 4 MG Acetaminophen 650 mg Q4HP PRN PO 03/31/25 18:30 04/02/25 23:42 650 MG Lactulose 30 ml Q6HPRN PRN PO 04/02/25 14:15 objective General Appearance: alert, no distress HEENT: EOMI, PERRLA, normal external inspect of ears, no icterus, no nasal drainage Neck: no carotid bruit, no jugular venous distention (JVD), no lymphadenopathy Chest: normal thorax Respiratory: clear to auscultation, normal air movement Cardiovascular: regular rate and rhythm, no diastolic murmur, no jugular venous distention (JVD), no rub, no systolic murmur Abdominal: soft, no hepatomegaly, no mass, no splenomegaly, no tenderness Genitourinary: grossly normal external Musculoskeletal: no joint tenderness, no swelling Extremities: normal pulses, no calf tenderness, no clubbing, no cyanosis, no edema Skin: no bruising, no jaundice, no rash Neurological: alert, No focal deficit laboratory and microbiology Laboratory Tests 04/03/25 10:11 Test 04/03/25 10:11 Range/Units Serum Glucose 113 H 74-106 mg/dL Problem List 1. Acute sepsis likely due to acute appendicitis IV antibiotics, surgical consult 2. Non-STEMI likely type 2 due to above Cardiac consult, trend troponin 3. Hypokalemia Replace 4. Anemia unspecified Monitor 5. Hypertension Continue home medication 6. Obesity Monitor Assessment/Plan Subjective Patient is awake and alert. Objective Patient is Citizen Of [place]-speaking. Patient is status post laparoscopic appendectomy by Dr. Cody on March 31, 2025. Patient was found to be septic. Patient status post surgery drain with serosanguineous drainage. Patient is passing gas. No bowel movement at this time. I did discuss plan of care with RN. Plan Start medications for constipation. I encourage patient to ambulate more. PT eval is pending. Plan for drain removal by surgeon. DC planning possibly for tomorrow. Dietary Evaluation Review Comments: 1. Check A1C, if high, offfer CCHO-60 cardiac diet 2. Monitor PO intake to meet 75% of her needs 3. Glucerna BID PO supplements if PO intake<50% 4. Monitor lab values related to kidney function Expected Outcomes/Goals: 1. maintain normal glucose 2. maintain PO intake to tiffani 75% of her needs 3. gradual wt loss Plan discussed with: Patient, Other HERMELINDA AVALOS NP Apr 03, 2025 15:44
--- NOTE | 2025-04-03 22:06 | DVHPN2 ---
Progress Note Date Seen: Apr 03, 2025 Medical Necessity Reason Pt with a Central, PICC or Fol: No Objective vital signs Vital Sign Date Time Temp Pulse Resp B/P (MAP) Pulse Ox O2 Delivery O2 Flow Rate FiO2 04/03/25 21:00 98.6 85 18 147/77 (100) 96 98.6 04/03/25 08:00 Room Air* 0 21 Total Intake and Output 04/02/25 04/02/25 04/03/25 15:00 23:00 07:00 Intake Total 690 ml 900 ml Output Total 750 ml 1600 ml Balance -60 ml -700 ml medications Current Medications Medications Dose Ordered Sig/Matthew Route Start Time Stop Time Status Last Admin Dose Admin Nitroglycerin 0.4 mg Q5MINP PRN SL 03/31/25 10:45 Morphine Sulfate 2 mg Q30M PRN IV 03/31/25 10:45 Piperacillin Sod/ Tazobactam Sod 100 ml @ 25 mls/hr Q8H IV 03/31/25 20:00 04/03/25 19:44 25 MLS/HR Pantoprazole Sodium 40 mg DAILY IV 04/01/25 10:00 04/03/25 10:53 40 MG Morphine Sulfate 1 mg Q3HP PRN IV 03/31/25 11:00 04/03/25 20:33 1 MG Ondansetron HCl 4 mg Q6HPRN PRN IV 03/31/25 11:00 03/31/25 11:31 4 MG Acetaminophen 650 mg Q4HP PRN PO 03/31/25 18:30 04/02/25 23:42 650 MG Lactulose 30 ml Q6HPRN PRN PO 04/02/25 14:15 Temazepam 15 mg HSPRN PRN PO 04/03/25 21:30 UNV laboratory and microbiology Laboratory Tests 04/03/25 10:11 Test 04/03/25 10:11 Range/Units Serum Glucose 113 H 74-106 mg/dL Microbiology Date/Time Source Procedure Growth Status 03/31/25 05:50 Blood Blood Culture - Preliminary NO GROWTH AFTER 72 HOURS OF INCUBATION. Resulted Problem List/Assessment/Plan Problem List/Assessment/Plan AFEBRILE VSS ABD SOFT LESS TENDER DRAIN SEROUS 10 CC SP LAP APPENDECTOMY NO COMPLICATION EILEEN DIET DC DRAIN AM Plan discussed with: Other Dietary Evaluation Review Comments: 1. Check A1C, if high, offfer [facility] diet 2. Monitor PO intake to meet 75% of her needs 3. Glucerna BID PO supplements if PO intake<50% 4. Monitor lab values related to kidney function Expected Outcomes/Goals: 1. maintain normal glucose 2. maintain PO intake to tiffani 75% of her needs 3. gradual wt loss CONG COTTER MD Apr 03, 2025 22:05
[2025-04-03] MEDS: TEMAZEPAM 15 MG CAP PO PRN (22:51)
[2025-04-04] VITALS (9 sets, daily range): BP systolic 134–153; BP diastolic 54–88; PULSE 80–93; RESP 16–19; TEMP 97.7–98.5; O2SAT 94–96
[2025-04-04] MEDS: LACTULOSE 20Gm/30ML SOLN PO PRN (09:10)
--- NOTE | 2025-04-04 13:11 | DVHDS2 ---
Discharge Summary Date of Admission Mar 31, 2025 at 10:40 Labs/Diagnostic Data: Laboratory Results Test 04/03/25 10:11 04/01/25 06:21 03/31/25 22:01 03/31/25 08:26 White Blood Count 5.8 10^3/uL (4.4-10.8) Red Blood Count 3.60 10^6/uL (4.0-5.20) Hemoglobin 11.8 g/dL (12.2-16.2) Hematocrit 34.3 % (36.0-46.0) Mean Corpuscular Volume 95.3 fL (80.0-100.0) Mean Corpuscular Hemoglobin 32.7 pg (28.0-32.0) Mean Corpuscular Hemoglobin Concent 34.3 g/dL (32.0-36.0) Red Cell Distribution Width 13.6 % (11.8-14.3) Platelet Count 233 10^3/uL (140-450) Mean Platelet Volume 7.9 fL (6.9-10.8) Neutrophils (%) (Auto) 81.1 % (37.0-80.0) Lymphocytes (%) (Auto) 13.0 % (10.0-50.0) Monocytes (%) (Auto) 4.7 % (0.0-12.0) Eosinophils (%) (Auto) 0.9 % (0.0-7.0) Basophils (%) (Auto) 0.3 % (0.0-2.0) Neutrophils # (Auto) 4.7 10 ^3/uL (1.6-8.6) Lymphocytes # (Auto) 0.8 10 ^3/uL (0.4-5.4) Monocytes # (Auto) 0.3 10 ^3/uL (0-1.3) Eosinophils # (Auto) 0.1 10 ^3/uL (0-0.8) Basophils # (Auto) 0 10 ^3/uL (0-0.2) Nucleated Red Blood Cells 0.0 % Sodium Level 139 mmol/L (136-145) Potassium Level 3.6 mmol/L (3.5-5.1) Chloride Level 104 mmol/L (98-107) Carbon Dioxide Level 25 mmol/L (20-31) Anion Gap 10 (5-15) Blood Urea Nitrogen 6 mg/dL (9-23) Creatinine 0.48 mg/dL (0.550-1.02) Glomerular Filtration Rate Calc 101 mL/min (>90) BUN/Creatinine Ratio 12.5 (10.0-20.0) Serum Glucose 113 mg/dL (74-106) Calcium Level 8.6 mg/dL (8.7-10.4) Hepatitis B Surface Antigen Negative (Negative) Hepatitis C Antibody Negative (Negative) Troponin I High Sensitivity 1037 ng/L (</=34) Urine Color Light-yellow (Yellow) Urine Clarity Clear (Clear) Urine pH 6.5 (5.0-9.0) Urine Specific [place] 1.013 (1.001-1.035) Urine Protein Negative (Negative) Urine Ketones Negative (Negative) Urine Blood 1+ /uL (Negative) Urine Nitrite Negative (Negative) Urine Bilirubin Negative (Negative) Urine Urobilinogen Normal mg/dL (Negative) Urine Leukocyte Esterase Negative /uL (Negative) Urine RBC 6 /hpf (0 - 4) Urine Microscopic WBC 1 /HPF (0-5) Urine Squamous Epithelial Cells Few /hpf (<5) Urine Bacteria None seen /hpf (None Seen) Urine Glucose Normal mg/dL (Normal) Test 03/31/25 07:05 03/31/25 05:50 Magnesium Level 1.6 mg/dL (1.6-2.6) Thyroid Stimulating Hormone (TSH) 0.31 uIU/mL (0.55-4.78) Prothrombin Time 12.1 sec (9.3-11.8) Prothrombin Time INR 1.16 (0.9-1.15) Activated Partial Thromboplast Time 29.2 SEC (24.5-34.5) Lactic Acid Level 1.0 mmol/L (0.4-2.0) Total Bilirubin 0.5 mg/dL (0.2-1.0) Aspartate Amino Transferase (AST) 18 U/L (13-40) Alanine Aminotransferase (ALT) < 9 U/L (7-40) Alkaline Phosphatase 44 U/L (46-116) B-Type Natriuretic Peptide 105.27 pg/mL (0-100) Total Protein 5.7 g/dL (5.7-8.2) Albumin 3.5 g/dL (3.2-4.8) Lipase 40 U/L (12-53) Other Laboratory Tests 04/03/25 10:11 Discharge Instruct/Medications Scheduled Gabapentin (Gabapentin), 600 MG PO BID, (Reported) Discharge Statement: "Patient was advised to return to the ER or call 911 if any headaches, dizziness, shortness of breath, chest pain, abdominal pain, bleeding, fevers, or worsening of medical condition. Patient was counseled about treatment plan, medications, possible side effects, patientverbalized understanding. All questions were answered to the best of my ability. This discharge took greater then 30 minutes in planning, reviewing documentation, counseling the patient, and discussing with other team members." ASSESSMENT ASSESSMENT Assessment HERMELINDA AVALOS NP Apr 04, 2025 13:11
--- NOTE | 2025-04-04 16:13 | DVHPN2 ---
Progress Note Date Seen: Apr 04, 2025 Medical Necessity Reason Pt with a Central, PICC or Fol: No Objective vital signs Vital Sign Date Time Temp Pulse Resp B/P (MAP) Pulse Ox O2 Delivery O2 Flow Rate FiO2 04/04/25 13:00 97.8 82 18 149/80 (103) 95 97.8 04/04/25 07:45 Room Air* 0 21 Total Intake and Output 04/03/25 04/03/25 04/04/25 15:00 23:00 07:00 Intake Total 300 ml 960 ml 350 ml Output Total 1305 ml 1400 ml Balance 300 ml -345 ml -1050 ml medications Current Medications Medications Dose Ordered Sig/Matthew Route Start Time Stop Time Status Last Admin Dose Admin Nitroglycerin 0.4 mg Q5MINP PRN SL 03/31/25 10:45 Morphine Sulfate 2 mg Q30M PRN IV 03/31/25 10:45 Piperacillin Sod/ Tazobactam Sod 100 ml @ 25 mls/hr Q8H IV 03/31/25 20:00 04/04/25 12:00 25 MLS/HR Pantoprazole Sodium 40 mg DAILY IV 04/01/25 10:00 04/04/25 09:09 40 MG Morphine Sulfate 1 mg Q3HP PRN IV 03/31/25 11:00 04/04/25 11:59 1 MG Ondansetron HCl 4 mg Q6HPRN PRN IV 03/31/25 11:00 03/31/25 11:31 4 MG Acetaminophen 650 mg Q4HP PRN PO 03/31/25 18:30 04/02/25 23:42 650 MG Lactulose 30 ml Q6HPRN PRN PO 04/02/25 14:15 04/04/25 09:10 30 ML Temazepam 15 mg HSPRN PRN PO 04/03/25 21:30 04/03/25 22:51 15 MG laboratory and microbiology Laboratory Tests 04/03/25 10:11 Test 04/03/25 10:11 Range/Units Serum Glucose 113 H 74-106 mg/dL Microbiology Date/Time Source Procedure Growth Status 03/31/25 05:50 Blood Blood Culture - Preliminary NO GROWTH AFTER 72 HOURS OF INCUBATION. Resulted Problem List/Assessment/Plan Problem List/Assessment/Plan AFEBRILE VSS ABD SOFT LESS TENDER DRAIN SEROUS 10 CC SP LAP APPENDECTOMY NO COMPLICATION EILEEN DIET DRAIN REMOVED NURSE AT BEDSIDE CLEARED FOR DISCHARGE Plan discussed with: Other Dietary Evaluation Review Comments: 1. Check A1C, if high, offfer CCHO-60 cardiac diet 2. Monitor PO intake to meet 75% of her needs 3. Glucerna BID PO supplements if PO intake<50% 4. Monitor lab values related to kidney function Expected Outcomes/Goals: 1. maintain normal glucose 2. maintain PO intake to tiffani 75% of her needs 3. gradual wt loss CONG COTTER MD Apr 04, 2025 16:13
--- NOTE | 2025-04-04 17:24 | DVHPN2 ---
Progress Note - Dictate Date Seen: Apr 04, 2025 Medical Necessity Reason Pt with a Central, PICC or Fol: No vital signs Vital Sign Date Time Temp Pulse Resp B/P (MAP) Pulse Ox O2 Delivery O2 Flow Rate FiO2 04/04/25 16:57 98.4 87 17 134/69 (90) 94 98.4 04/04/25 07:45 Room Air* 0 21 Total Intake and Output 04/03/25 04/03/25 04/04/25 15:00 23:00 07:00 Intake Total 300 ml 960 ml 350 ml Output Total 1305 ml 1400 ml Balance 300 ml -345 ml -1050 ml medications Current Medications Medications Dose Ordered Sig/Matthew Route Start Time Stop Time Status Last Admin Dose Admin Nitroglycerin 0.4 mg Q5MINP PRN SL 03/31/25 10:45 Morphine Sulfate 2 mg Q30M PRN IV 03/31/25 10:45 Piperacillin Sod/ Tazobactam Sod 100 ml @ 25 mls/hr Q8H IV 03/31/25 20:00 04/04/25 16:20 25 MLS/HR Pantoprazole Sodium 40 mg DAILY IV 04/01/25 10:00 04/04/25 09:09 40 MG Morphine Sulfate 1 mg Q3HP PRN IV 03/31/25 11:00 04/04/25 11:59 1 MG Ondansetron HCl 4 mg Q6HPRN PRN IV 03/31/25 11:00 03/31/25 11:31 4 MG Acetaminophen 650 mg Q4HP PRN PO 03/31/25 18:30 04/02/25 23:42 650 MG Lactulose 30 ml Q6HPRN PRN PO 04/02/25 14:15 04/04/25 09:10 30 ML Temazepam 15 mg HSPRN PRN PO 04/03/25 21:30 04/03/25 22:51 15 MG objective General Appearance: alert, no distress HEENT: EOMI, PERRLA, normal external inspect of ears, no icterus, no nasal drainage Neck: no carotid bruit, no jugular venous distention (JVD), no lymphadenopathy Chest: normal thorax Respiratory: clear to auscultation, normal air movement Cardiovascular: regular rate and rhythm, no diastolic murmur, no jugular venous distention (JVD), no rub, no systolic murmur Abdominal: soft, no hepatomegaly, no mass, no splenomegaly, no tenderness Genitourinary: grossly normal external Musculoskeletal: no joint tenderness, no swelling Extremities: normal pulses, no calf tenderness, no clubbing, no cyanosis, no edema Skin: no bruising, no jaundice, no rash Neurological: alert, No focal deficit laboratory and microbiology Laboratory Tests 04/03/25 10:11 Test 04/03/25 10:11 Range/Units Serum Glucose 113 H 74-106 mg/dL Problem List 1. Acute sepsis likely due to acute appendicitis IV antibiotics, surgical consult 2. Non-STEMI likely type 2 due to above Cardiac consult, trend troponin 3. Hypokalemia Replace 4. Anemia unspecified Monitor 5. Hypertension Continue home medication 6. Obesity Monitor Assessment/Plan Subjective Patient is awake and alert. Objective Patient is [place]-speaking. Patient is status post laparoscopic appendectomy by Dr. Cody. RAUL drain was removed today. Patient still has not had a bowel movement. She is positive for flatus. Plan Patient to continue to ambulate. Patient is tolerating oral diet. DC planning for tomorrow. Dietary Evaluation Review Comments: 1. Check A1C, if high, offfer CCHO-60 cardiac diet 2. Monitor PO intake to meet 75% of her needs 3. Glucerna BID PO supplements if PO intake<50% 4. Monitor lab values related to kidney function Expected Outcomes/Goals: 1. maintain normal glucose 2. maintain PO intake to tiffani 75% of her needs 3. gradual wt loss Plan discussed with: Patient, Other HERMELINDA AVALOS NP Apr 04, 2025 17:24
[2025-04-04] MEDS: PIPERACILLIN-TAZOB 3.375GM 100 ML IV SCH (19:27)
[2025-04-05 01:00] VITALS: BP 110/71; PULSE 84; RESP 16; TEMP 98.7; O2SAT 97
[2025-04-05 05:00] VITALS: BP 135/73; PULSE 83; RESP 16; TEMP 98.7; O2SAT 98
[2025-04-05 08:00] VITALS: PULSE 75; PULSE 88; RESP 17; O2SAT 96
[2025-04-05 09:00] VITALS: BP 128/83; PULSE 84; RESP 17; TEMP 97; O2SAT 95
[2025-04-05 13:00] VITALS: BP 159/74; PULSE 88; RESP 19; TEMP 97.7; O2SAT 97
[2025-04-05] MEDS ORDERED: HYDR-4902 PO (15:31)
--- NOTE | 2025-04-05 15:33 | DVHDS2 ---
Discharge Summary Date of Admission Mar 31, 2025 at 10:40 Date of Discharge: Apr 05, 2025 Labs/Diagnostic Data: Laboratory Results Test 04/03/25 10:11 04/01/25 06:21 03/31/25 22:01 03/31/25 08:26 White Blood Count 5.8 10^3/uL (4.4-10.8) Red Blood Count 3.60 10^6/uL (4.0-5.20) Hemoglobin 11.8 g/dL (12.2-16.2) Hematocrit 34.3 % (36.0-46.0) Mean Corpuscular Volume 95.3 fL (80.0-100.0) Mean Corpuscular Hemoglobin 32.7 pg (28.0-32.0) Mean Corpuscular Hemoglobin Concent 34.3 g/dL (32.0-36.0) Red Cell Distribution Width 13.6 % (11.8-14.3) Platelet Count 233 10^3/uL (140-450) Mean Platelet Volume 7.9 fL (6.9-10.8) Neutrophils (%) (Auto) 81.1 % (37.0-80.0) Lymphocytes (%) (Auto) 13.0 % (10.0-50.0) Monocytes (%) (Auto) 4.7 % (0.0-12.0) Eosinophils (%) (Auto) 0.9 % (0.0-7.0) Basophils (%) (Auto) 0.3 % (0.0-2.0) Neutrophils # (Auto) 4.7 10 ^3/uL (1.6-8.6) Lymphocytes # (Auto) 0.8 10 ^3/uL (0.4-5.4) Monocytes # (Auto) 0.3 10 ^3/uL (0-1.3) Eosinophils # (Auto) 0.1 10 ^3/uL (0-0.8) Basophils # (Auto) 0 10 ^3/uL (0-0.2) Nucleated Red Blood Cells 0.0 % Sodium Level 139 mmol/L (136-145) Potassium Level 3.6 mmol/L (3.5-5.1) Chloride Level 104 mmol/L (98-107) Carbon Dioxide Level 25 mmol/L (20-31) Anion Gap 10 (5-15) Blood Urea Nitrogen 6 mg/dL (9-23) Creatinine 0.48 mg/dL (0.550-1.02) Glomerular Filtration Rate Calc 101 mL/min (>90) BUN/Creatinine Ratio 12.5 (10.0-20.0) Serum Glucose 113 mg/dL (74-106) Calcium Level 8.6 mg/dL (8.7-10.4) Hepatitis B Surface Antigen Negative (Negative) Hepatitis C Antibody Negative (Negative) Troponin I High Sensitivity 1037 ng/L (</=34) Urine Color Light-yellow (Yellow) Urine Clarity Clear (Clear) Urine pH 6.5 (5.0-9.0) Urine Specific [place] 1.013 (1.001-1.035) Urine Protein Negative (Negative) Urine Ketones Negative (Negative) Urine Blood 1+ /uL (Negative) Urine Nitrite Negative (Negative) Urine Bilirubin Negative (Negative) Urine Urobilinogen Normal mg/dL (Negative) Urine Leukocyte Esterase Negative /uL (Negative) Urine RBC 6 /hpf (0 - 4) Urine Microscopic WBC 1 /HPF (0-5) Urine Squamous Epithelial Cells Few /hpf (<5) Urine Bacteria None seen /hpf (None Seen) Urine Glucose Normal mg/dL (Normal) Test 03/31/25 07:05 03/31/25 05:50 Magnesium Level 1.6 mg/dL (1.6-2.6) Thyroid Stimulating Hormone (TSH) 0.31 uIU/mL (0.55-4.78) Prothrombin Time 12.1 sec (9.3-11.8) Prothrombin Time INR 1.16 (0.9-1.15) Activated Partial Thromboplast Time 29.2 SEC (24.5-34.5) Lactic Acid Level 1.0 mmol/L (0.4-2.0) Total Bilirubin 0.5 mg/dL (0.2-1.0) Aspartate Amino Transferase (AST) 18 U/L (13-40) Alanine Aminotransferase (ALT) < 9 U/L (7-40) Alkaline Phosphatase 44 U/L (46-116) B-Type Natriuretic Peptide 105.27 pg/mL (0-100) Total Protein 5.7 g/dL (5.7-8.2) Albumin 3.5 g/dL (3.2-4.8) Lipase 40 U/L (12-53) Other Laboratory Tests 04/03/25 10:11 Brief Hx & Hospital Course: Patient is 74-year-old female with past medical history of hypertension, depression, peripheral neuropathy, insomnia brought to the hospital from [facility] for evaluation of altered mental status and severe abdominal pain. Patient was found to being altered around yesterday evening 2100, was seen by son, given patient was altered , patient was brought to the [facility]. During [facility] patient found to have hypokalemia, head CT scan ruled out acute intracranial abnormality, chest x-ray was unremarkable, CT scan abdomen found to have acute appendicitis, possible micro perforation can not be ruled out. Then patient was transferred to [facility] for further evaluation. Patient was admitted for abdominal pain related to acute appendicitis. Patient was seen by general surgery. Patient is status post laproscopic appendectomy by Dr. Cody. Patient had a RAUL drain placed and was removed this morning. Patient was sent home with pain medication and she was instructed to ambulate and to follow up with her PCP in one week and with general surgery in 7-10 days. There were no complaints or new complaints upon discharge, all questions and concerns were answered. Patient was advised to return to the ER or call 911 if any headaches, dizziness, shortness of breath, chest pain, bleeding, fevers, or worsening of medical condition. Patient/Family was counseled about treatment plan, medications, possible side effects, patient verbalized understanding. All questions were answered to the best of my ability. The patient symptoms improved and they are okay to be DC. Condition at Discharge: Stable Final Diagnosis/Problems List S/P laparoscopic appendectomy Discharge Disposition: Home Discharge Instruct/Medications Diet: Cardiac 2g Na,low cholest Activity: No Restrictions, As Tolerated Follow Up/Referral: pcp 1 week Surgeon 7-10 days Medications: [place] Scheduled Gabapentin (Gabapentin), 600 MG PO BID, (Reported) Scheduled PRN Hydrocodone-Acetaminophen (Hydrocodone Bitartrate/AC 5-325 mg), 1 TAB PO Q8HP PRN Discharge Statement: "Patient was advised to return to the ER or call 911 if any headaches, dizziness, shortness of breath, chest pain, abdominal pain, bleeding, fevers, or worsening of medical condition. Patient was counseled about treatment plan, medications, possible side effects, patientverbalized understanding. All questions were answered to the best of my ability. This discharge took greater then 30 minutes in planning, reviewing documentation, counseling the patient, and discussing with other team members." ASSESSMENT ASSESSMENT Assessment S/P laparoscopic appendectomy HERMELINDA AVALOS NP Apr 05, 2025 15:33
[2025-04-05 16:55] VITALS: BP 122/86; PULSE 78; RESP 19; TEMP 97.8; O2SAT 97
== END 2025-04-05 18:30 | disposition home or self-care (01) | DRG 853 ==
LOC: EDBD 05:11 → ER 05:11 → OVERFLOW 10:40 → TELE-EAST 17:14 → TELE-CENTR 04-02 12:16
PROVIDERS: ADMIT Nurse Practitioner; ATTEND Nurse Practitioner
PROC: 0DTJ4ZZ Resection of Appendix, Percutaneous Endoscopic Approach (ICD-10-PCS; principal; 2025-03-31 18:48)
DX: A41.9 Sepsis, unspecified organism (principal); G92.9 Unspecified toxic encephalopathy; I21.A1 Myocardial infarction type 2; K35.33 Acute appendicitis with perforation, localized peritonitis, and gangrene, with abscess; E87.6 Hypokalemia; E66.9 Obesity, unspecified; D64.9 Anemia, unspecified; K66.0 Peritoneal adhesions (postprocedural) (postinfection); I10 Essential (primary) hypertension; E78.5 Hyperlipidemia, unspecified; E11.42 Type 2 diabetes mellitus with diabetic polyneuropathy; M16.0 Bilateral primary osteoarthritis of hip; F32.A Depression, unspecified; G47.00 Insomnia, unspecified; Z68.31 Body mass index [BMI] 31.0-31.9, adult; Z90.710 Acquired absence of both cervix and uterus; Z79.899 Other long term (current) drug therapy
CPT/HCPCS: 36415; 71045; 74176; 80048; 80053; 81001; 83605; 83690; 83735; 83880; 84132; 84443; 84484; 85025; 85610; 85730; 86803; 87040; 87340; 93005; 93306; 96365; 96375; 97110; 97116; 97163; 97530; 99291; G0378; J0131; J0330; J1956; J2405; J2470; J2543; J2704; J3480; J3490